=== PATIENT | female | born 1995 | race African-American/Black ===

== ENCOUNTER 2017-10-11 10:55 | Inpatient (IN) | payer SELFPAY ==
--- NOTE | 2017-10-11 11:07 | ER Document Report ---
ED Medical Screen (RME) - General Chief Complaint: Abdominal Pain Stated Complaint: STOMACH PAIN Time Seen by Provider: 10/11/17 11:03 Notes: This 22-year-old female patient comes emergency room with a 4 day history of suprapubic pressure discomfort. She developed frequency without dysuria. She states it does hurt when she walks. There is no nausea or vomiting. She reports that there may be a clear vaginal discharge but she does not know if that is new. Last menstrual period was in December of this year, she is quite irregular, does not know if he may or may not be . I have greeted and performed a rapid initial assessment of this patient. A comprehensive ED assessment and evaluation of the patient, analysis of test results and completion of the medical decision making process will be conducted by additional ED providers. TRAVEL OUTSIDE OF THE [place] IN LAST 30 DAYS: No - Related Data Allergies/Adverse Reactions: No Known Allergies Allergy (Verified 10/11/17 10:55) Past Medical History - Immunizations Hx Diphtheria, Pertussis, Tetanus Vaccination: Yes Physical Exam - Vital signs Vitals: Temp Pulse Resp BP Pulse Ox 98.3 F 93 20 156/93 H 99 10/11/17 11:01 10/11/17 11:01 10/11/17 11:01 10/11/17 11:01 10/11/17 11:01 Course - Vital Signs Vital signs: Temp Pulse Resp BP Pulse Ox 98.3 F 93 20 156/93 H 99 10/11/17 11:01 10/11/17 11:01 10/11/17 11:01 10/11/17 11:01 10/11/17 11:01
[2017-10-11 11:45] LABS: APPEARANCE,URINE CLOUDY; BILIRUBIN,URINE SMALL (NEGATIVE); CALCIUM OXALATE CRYSTALS,URINE RARE /HPF; GLUCOSE, URINE NEGATIVE (NEGATIVE); KETONES,URINE NEGATIVE (NEGATIVE); LEUKOCYTE ESTERASE,URINE NEGATIVE (NEGATIVE); NITRITE,URINE NEGATIVE (NEGATIVE); PROTEIN,URINE >=500 mg/dL (NEGATIVE); URINE SPECIFIC GRAVITY 1.034
--- NOTE | 2017-10-11 11:55 | ER Document Report ---
ED GI/ - General Chief Complaint: Abdominal Pain Stated Complaint: STOMACH PAIN Time Seen by Provider: 10/11/17 11:03 Mode of Arrival: Ambulatory Information source: Patient Notes: Patient is a 22-year-old female who presents to the ER today for lower abdominal pressure 4 days that worsened over the night and this morning. Patient admits to back pain that started this morning to the bilateral lower back. Patient states that she has had frequency of urination but no dysuria. She denies any fevers or chills. She denies but she states her last menstrual cycle was in December, but states that she is irregular and has been "stressed out." She states that the pain is coming and going. She states that it comes every couple of minutes now. She denies any vaginal bleeding but states that she had some clear vaginal discharge this morning. TRAVEL OUTSIDE OF THE [place] IN LAST 30 DAYS: No - Related Data Allergies/Adverse Reactions: No Known Allergies Allergy (Verified 10/11/17 10:55) Home Medications: Current Home Medications No Home Medications 10/11/17 [History] Past Medical History - General Information source: Patient - Social History Smoking Status: Never Smoker Frequency of alcohol use: Occasional Drug Abuse: None Family History: Reviewed & Not Pertinent Patient has suicidal ideation: No Patient has homicidal ideation: No Renal/ Medical History: Denies: Hx Peritoneal Dialysis Past Surgical History: Reports: Hx Tonsillectomy - Immunizations Hx Diphtheria, Pertussis, Tetanus Vaccination: Yes Review of Systems - Review of Systems Constitutional: No symptoms reported EENT: No symptoms reported Cardiovascular: No symptoms reported Respiratory: No symptoms reported Gastrointestinal: No symptoms reported Genitourinary: No symptoms reported Female Genitourinary: See HPI Musculoskeletal: No symptoms reported Skin: No symptoms reported Hematologic/Lymphatic: No symptoms reported Neurological/Psychological: No symptoms reported Physical Exam - Vital signs Vitals: Temp Pulse Resp BP Pulse Ox 98.3 F 93 20 156/93 H 99 10/11/17 11:01 10/11/17 11:01 10/11/17 11:01 10/11/17 11:01 10/11/17 11:01 - Notes Notes: PHYSICAL EXAMINATION: GENERAL: Obviously uncomfortable, holding lower abdomen and low back pacing around the room, but in no acute distress. HEAD: Atraumatic, normocephalic. EYES: Pupils equal round and reactive to light, extraocular movements intact, sclera anicteric, conjunctiva are normal. NECK: Normal range of motion, supple without lymphadenopathy LUNGS: CTAB and equal. No wheezes rales or rhonchi. HEART: Regular rate and rhythm without murmurs ABDOMEN: Full-term gravid abdomen, tender to palpation suprapubic, no guarding, no rebound BACK: no vertebral tenderness, normal ROM GI/: no CVA tenderness EXTREMITIES: Normal range of motion, no pitting edema. No cyanosis. NEUROLOGICAL: Cranial nerves grossly intact. Normal sensory/motor exams. PSYCH: Normal mood, normal affect. SKIN: Warm, Dry, normal turgor, no rashes or lesions noted Course - Re-evaluation Re-evalutation: 10/11/17 12:52 On abdominal exam patient is obviously . Bedside ultrasound was performed by myself and the my attending, Dr. Bright, who confirmed full-term sized fetus in the uterus. test positive on urine today. Dr. Escudero, SALES AGENT [employer] on-call was down to evaluate her within 5 minutes and did confirm that patient had broken her water this morning and was in labor. Patient is [address] Escudero's exam. Patient taken up to labor and delivery. 10/11/17 16:41 10/11/17 16:41 - Vital Signs Vital signs: Temp Pulse Resp BP Pulse Ox 98.3 F 93 20 156/93 H 99 10/11/17 11:01 10/11/17 11:01 10/11/17 11:01 10/11/17 11:01 10/11/17 11:01 - Laboratory Result Diagrams: 10/11/17 12:52 10/11/17 12:52 Laboratory results interpreted by me: 10/11/17 11:10 Urine Protein >=500 H Urine Blood SMALL H Urine Bilirubin SMALL H Urine Urobilinogen 4.0 H Urine HCG, Qual POSITIVE H Critical Care Note - Critical Care Note Total time excluding time spent on procedures (mins): 35 - 35 minutes spent in critical care time with patient, consulted with attending, speaking with family , placing orders and evaluating tests and labs. Discharge - Discharge Clinical Impression: full term Condition: Stable Disposition: ADMITTED INPATIENT Admitting Provider: [facility] Admitted: Labor and Delivery
[2017-10-11] MEDS ORDERED: RINGERS SOLUTION,LACTATED 1,000 ML IV PRN (12:33)
[2017-10-11] MEDS ORDERED: PENICILLIN G-K 5 MILLION UNIT VIAL ONE ×3 (12:57→21:14)
[2017-10-11] MEDS ORDERED: PENICILLIN G POTASSIUM 5,000,000 UNIT in DEXTROSE 5%-WATER 100 ML IV ONE (13:00)
[2017-10-11 13:32] LABS: ABSOLUTE BASOPHILS # (AUTO) 0.1 10^3/uL (0.0-0.2); ABSOLUTE NEUT (AUTO) 10.8 10^3/uL (1.7-8.2); BASOPHILS % (AUTO) 0.4 % (0-2); EOSINOPHILS % (AUTO) 0.2 % (0-6); HEMOGLOBIN 8.4 g/dL (12.0-15.5); HGB HCT DIFFERENCE -1.8; LYMPHOCYTES % (AUTO) 14.1 % (13-45); MEAN CORPUSCULAR HEMOGLOBIN 20.4 pg (27.0-33.4); MEAN CORPUSCULAR HGB CONC 30.9 g/dL (32.0-36.0); MEAN CORPUSCULAR VOLUME 66 fl (80-97); MONOCYTES % (AUTO) 7.5 % (3-13); RED CELL DISTRIBUTION WIDTH 18.1 % (11.5-14.0); SEGMENTED NEUTROPHILS % (AUTO) 77.8 % (42-78); WHITE BLOOD COUNT 13.9 10^3/uL (4.0-10.5)
[2017-10-11 13:48] LABS: APPEARANCE,URINE SLIGHTLY-CLOUDY; BILIRUBIN,URINE SMALL (NEGATIVE); GLUCOSE, URINE NEGATIVE (NEGATIVE); KETONES,URINE NEGATIVE (NEGATIVE); LEUKOCYTE ESTERASE,URINE NEGATIVE (NEGATIVE); NITRITE,URINE NEGATIVE (NEGATIVE); PROTEIN,URINE >=500 mg/dL (NEGATIVE); URINE SPECIFIC GRAVITY 1.035
[2017-10-11 13:52] LABS: ALANINE AMINOTRANSFERASE 27 U/L (9-52); ALBUMIN 3.3 g/dL (3.5-5.0); ALKALINE PHOSPHATASE 246 U/L (38-126); ANION GAP 12 (5-19); ASPARTATE AMINO TRANSFERASE 15 U/L (14-36); BILIRUBIN,DIRECT 0.2 mg/dL (0.0-0.4); BILIRUBIN,TOTAL 0.5 mg/dL (0.2-1.3); BLOOD UREA NITROGEN 5 mg/dL (7-20); CALCIUM 9.1 mg/dL (8.4-10.2); CARBON DIOXIDE 19 mmol/L (22-30); CHLORIDE 106 mmol/L (98-107); CREATININE RESULT 0.63 mg/dL (0.52-1.25); GLUCOSE 73 mg/dL (75-110); LDH 567 U/L (313-618); POTASSIUM 4.4 mmol/L (3.6-5.0); SODIUM 137.2 mmol/L (137-145); TOTAL PROTEIN 6.2 g/dL (6.3-8.2); URIC ACID 3.2 mg/dL (2.5-6.2)
[2017-10-11 13:57] LABS: URINE BARBITURATES SCREEN NEGATIVE; URINE METHADONE SCREEN NEGATIVE; URINE OPIATES LOW NEGATIVE; URINE PHENCYCLIDINE SCREEN NEGATIVE
--- NOTE | 2017-10-11 14:05 | RADIOLOGY REPORT (SQ) ---
EXAM DESCRIPTION: U/S OB LIMITED COMPLETED DATE/TIME: 10/11/2017 1:33 pm REASON FOR STUDY: No PNC, dates, EFW, presentation, Placenta, BELINDA COMPARISON: None. TECHNIQUE: Limited transabdominal grayscale ultrasound for evaluation of specific requested obstetri morenita parameters. LIMITATIONS: Maternal body habitus FINDINGS: CERVICAL LENGTH: Not visualized transabdominally. BELINDA: 2.3 cm, oligohydramnios qualitatively FHR: 140 beats per minute. PRESENTATION: Cephalic. OTHER: Multiple measurements generated estimated age of 38 weeks 4 days, weight 3755 g. placent a anterior, grade 2 IMPRESSION: Oligohydramnios, total BELINDA 2.3 cm heart rate 140 beats per minute Estimated age by multiple measurements is 38 weeks 4 days Trimester of : Third trimester - 28 weeks to delivery. TECHNICAL DOCUMENTATION: JOB ID: [id number] [employer]- All Rights Reserved
[2017-10-11] MEDS ORDERED: EPHEDRINE SULFATE INJ 50 MG/1 ML AMPULE ONE (14:16)
[2017-10-11] MEDS ORDERED: FENTANYL/BUPIVACAINE/NS/PF 200 MCG/100 ML RTUINJ EPI ONE (14:17)
[2017-10-11] MEDS ORDERED: BUPIVACAINE HCL 0.25 % INJ/PF (2.5 MG/1 ML) 30 ML VIAL ONE (14:17)
[2017-10-11 14:32] LABS: ADD HIVPANEL? NO; HIV (1 AND 2) ANTIBODY NEGATIVE (NEGATIVE)
[2017-10-11] MEDS ORDERED: PENICILLIN G POTASSIUM 2,500,000 UNIT in DEXTROSE 5%-WATER 50 ML IV SCH (17:00)
[2017-10-11] MEDS ORDERED: OXYTOCIN/NORMAL SALINE 20 UNIT/1,000 ML RTUINJ ONE ×2 (17:46→20:56)
[2017-10-11] MEDS ORDERED: LIDOCAINE 2% INJ-PF (20 MG/ML) 10 ML AMPUL ONE (19:48)
[2017-10-11] MEDS ORDERED: LIDOCAINE 1% INJ-PF (10 MG/ML) 30 ML SDV ONE (20:56)
[2017-10-11] MEDS ORDERED: MISOPROSTOL 0.2 MG TABLET ONE (20:56)
[2017-10-12] MEDS ORDERED: CEFAZOLIN 2 GM/D5W RTU 2 GM/50 ML RTUPB IV ONE (00:12)
[2017-10-12] MEDS ORDERED: CITRIC ACID/SODIUM CITRATE ORAL SOLN 15 ML UDCUP ONE (00:12)
[2017-10-12] MEDS ORDERED: CEFAZOLIN SODIUM 2 GM in DEXTROSE 5%-WATER 50 ML IV PRN (00:14)
[2017-10-12] MEDS ORDERED: KETOROLAC TROMETHAMINE INJ/PF 30 MG/1 ML SDV ONE (00:24)
[2017-10-12] MEDS ORDERED: EPHEDRINE SULFATE INJ 50 MG/1 ML AMPULE ONE (00:24)
[2017-10-12] MEDS ORDERED: FENTANYL CITRATE INJ/PF 100 MCG/2 ML AMPUL ONE (00:24)
[2017-10-12] MEDS ORDERED: OXYTOCIN 10 UNIT/ML VIAL ONE (00:24)
[2017-10-12] MEDS ORDERED: OXYTOCIN/NORMAL SALINE 0 UNIT/0 ML RTUINJ ONE (00:25)
[2017-10-12] MEDS ORDERED: ONDANSETRON HCL INJ/PF 4 MG/2 ML SDV ONE (00:25)
[2017-10-12] MEDS ORDERED: MIDAZOLAM 2 MG/2 ML INJ ONE (00:25)
[2017-10-12] MEDS ORDERED: ACETAMINOPHEN 100 ML IV ONE (00:25)
[2017-10-12] MEDS ORDERED: ACETAMINOPHEN 325 MG TABLET PO PRN (01:35)
[2017-10-12] MEDS ORDERED: OXYCODONE-ACETAMINOPHEN 5-325 MG TABLET PO PRN ×2 (01:35)
[2017-10-12] MEDS ORDERED: ACETAMINOPHEN 100 ML IV PRN (01:35)
[2017-10-12] MEDS ORDERED: SIMETHICONE 80 MG TAB.CHEW PO PRN (01:35)
[2017-10-12] MEDS ORDERED: MORPHINE SULFATE 10 MG/ML INJ IV PRN (01:35)
[2017-10-12] MEDS ORDERED: PROMETHAZINE HCL INJ 25 MG/1 ML VIAL IV PRN (01:35)
[2017-10-12] MEDS ORDERED: MEASLES,MUMPS&RUBELLA VACC/PF 0.5 ML VIAL SUBCUT PRN ×2 (01:35→11:30)
[2017-10-12] MEDS ORDERED: DIPH/PERTUSS(ACELL)/TETANUS VAC/PF 0.5 ML SYR (>=10YO) IM PRN ×2 (01:35→11:30)
[2017-10-12] MEDS ORDERED: OXYTOCIN/NORMAL SALINE 20 UNIT/1,000 ML RTUINJ IV PRN (01:35)
--- NOTE | 2017-10-12 02:58 | Delivery Summary ---
Del Sum A-C Datetime Report Generated by CPN: 10/12/2017 02:58 DELIVERY PERSONNEL DELIVERY PERSONNEL: [id number] Delivery Doctor:: Tiki Escudero MD Anesthesiologist:: Evin Mann MD BAKE ROOM WORKER:: Bassam Becker CRNA Labor and Delivery Nurse:: Daphne Romero RNcompensation and benefits advisor Nurse:: Mayi Neri RN Neonatal Nurse Practitioner:: NASREEN Ervin Nursery Nurse:: Kristen Ledesma RN Medical Administrator/RURAL CARRIER ASSOCIATE: Danielle Franklin Medical Administrator/RURAL CARRIER ASSOCIATE: Lea Semar, WAREHOUSE PACKER MATERNAL INFORMATION Delivery Anesthesia: Epidural Medications After Delivery: Pitocin Bolus-Please Comment; Pitocin Drip 20 Units/1000ml NSS Meds After Delivery Comment: NS with Pitocin 20 units liter Estimated Blood Loss (ml): 500 Maternal Complications: Premature Rupture of Membranes; Other Other Maternal Complications: no care LABOR SUMMARY EDC: 10/21/2017 00:00 No. Babies in Womb: 1 Attempted: No Labor Anesthesia: Epidural LABOR INFORMATION Reason for Induction: Not Applicable Onset of Labor: 10/11/2017 13:47 Complete Dilatation: 10/11/2017 22:34 Oxytocin: Induction Group B Beta Strep: unknown Swab sent Antibiotics # of Doses: 3 Antibiotics Time of Last Dose: 2127 Name of Antibiotic Given: Penicillin Steroids Given: None Reason Steroids Not Administered: Not Applicable MEMBRANES Membranes Rupture Method: Spontaneous Rupture of Membranes: 10/09/2017 20:00 Length of Rupture (hr): 52.58 Amniotic Fluid Color: Clear Amniotic Fluid Amount: Scant Amniotic Fluid Odor: None STAGES OF LABOR Stage 1 hr: 8 Stage 1 min: 47 Stage 2 hr: 2 Stage 2 min: 1 Stage 3 hr: 0 Stage 3 min: 1 Total Time in Labor hr: 10 Total Time in Labor min: 49 VAGINAL DELIVERY Episiotomy: None Laceration #1: None Laceration Extension #1: N/A Laceration Repair: Not Applicable Sponge Count Correct: Yes Sharps Count Correct: Yes CSECTION DELIVERY Primary Indication: Nonreassuring Status Secondary Indication: Arrest of Descent CSection Urgency: Non-Scheduled CSection Incidence: Primary Labor: Labor Elective: Nonelective CSection Incision: Lower Uterine Transverse BABY A INFORMATION Infant Delivery Date/Time: 10/12/2017 00:35 Method of Delivery: Born in Route : No : N/A Forceps: N/A Vacuum Extraction: Failed Shoulder Dystocia : No ASSISTED DELIVERY BABY A Catheter Prior to Procedure: Yes Vacuum Number of Pulls: 3 Vacuum Number of PopOffs: 3 Reduce Pressure btwn Ctx: Yes PRESENTATION/POSITION BABY A Presentation: Cephalic Cephalic Presentation: Vertex Breech Presentation: N/A PLACENTA INFORMATION BABY A Placenta Delivery Time : 10/12/2017 00:36 Placenta Method of Delivery: Manual Removal Placenta Status: Delivered SCORES BABY A Heart Rate 1 min: >100 bpm Resp Effort 1 min: Good Cry Reflex Irritability 1 min: Cough or Sneeze or Pulls Away Muscle Tone 1 min: Active Motion Color 1 min: Body Rufus, Extremities Blue Resuscitation Effort 1 min: N/A SCORE 1 MIN: 9 Heart Rate 5 min: >100 bpm Resp Effort 5 min: Good Cry Reflex Irritability 5 min: Cough or Sneeze or Pulls Away Muscle Tone 5 min: Active Motion Color 5 min: Body Rufus, Extremities Blue Resuscitation Effort 5 min: N/A SCORE 5 MIN: 9 INFORMATION BABY A Gestational Age at Delivery: 38.5 Gestational Status: Early Term- 37- 38.6 Weeks Outcome : Liveborn Condition : Stable Infant Sex: Female IDENTIFICATION BABY A Verification Date/Time: 10/12/2017 01:19 ID Band Number: [id number] Mother's Name Verified: Yes Infant RN Verifying Infant: B.Ring _ C.Scottie WEIGHT/LENGTH BABY A Infant Birthweight (gm): 3545 Weight (lb): 7 Weight (oz): 13 Length (in): 21.00 (Annotations: Data stored by [facility] on behalf of user) Length (cm): 53.34 CORD INFORMATION BABY A No. Cord Vessels: 3 Nuchal Cord : N/A Cord Blood Taken: Yes-For Storage (Mom's Blood type +) Suction: Mouth; Nose ASSESSMENT BABY A Infant Complications: Multiple Late Decels; Multiple Variable Decels; Other Complications- Other: prolonged decelerations Physical Findings at Delivery: Caput Succedaneum Infant Respirations: Appears Normal Skin to Skin: No Drum Handler/ALS Called : No Infant Care By: Rubin Ledesma RN Transferred To: [facility] BABY B INFORMATION : N/A
[2017-10-12] MEDS ORDERED: MORPHINE SULFATE 10 MG/ML INJ ONE (03:07)
--- NOTE | 2017-10-12 03:38 | OPERATIVE REPORT E ---
Operative Report NAME: KOTA COTTON : 1995 AGE: 22Y DATE OF SURGERY: 10/12/2017 ROOM: LR200 PREOPERATIVE DIAGNOSES: 1. Intrauterine at 38 weeks 5 days. 2. Nonreassuring heart tones. 3. Failure to descend. POSTOPERATIVE DIAGNOSES: 1. Intrauterine at 38 weeks 5 days. 2. Nonreassuring heart tones. 3. Failure to descend. OPERATION: Low-transverse hysterotomy section procedure. SURGEON: JORGE MCCONNELL MD ANESTHESIA: Evin Mann MD with epidural. FINDINGS: Female at presentation with to 8 and 9. ESTIMATED BLOOD LOSS: 800 mL. COMPLICATIONS: None. PROCEDURE: The patient was taken to the operating room, prepared and draped in the normal sterile fashion in the supine position with a leftward tilt. A transverse incision was made with the scalpel and carried through to the underlying layer of fascia with the same scalpel. The fascia was excised and extended laterally with Royal. Rectus muscle was divided and the peritoneal cavity was entered bluntly with good visualization of the bladder and the uterus. The bladder blade was inserted and the hysterotomy was nixed with a scalpel and extended laterally with surgeon finger fracture. The infant was then delivered atraumatically. The nose and mouth were suctioned with a suction bulb and the cord was clamped and cut. The was handed off to the waiting mechanical spreader operator. Cord blood was collected. Placenta was removed manually. The uterus was exteriorized and cleared of clots and the hysterotomy was closed with #0 Vicryl in a running locked fashion. Second layer of the same suture was used to imbricate to ensure hemostasis. The uterus was returned to the abdomen and peritoneal cavity was cleared of clots. The rectus muscle and peritoneum were reapproximated with a mattress stitch of 2-0 Chromic. The fascia was closed with #0 Vicryl. The subcutaneous layer was closed with plain cat gut and the skin was closed with 4-0 Vicryl. The patient tolerated the procedure well. Sponge, lap and needle counts were correct x2. The patient taken to recovery in stable condition. DICTATING PHYSICIAN: JORGE MCCONNELL M.D. [id number] PHY#: [id number] ID: [id number] JOB#: [id number] ACCT: [id number] cc:JORGE MCCONNELL M.D. >
--- NOTE | 2017-10-12 04:28 | Admission Physical ---
Datetime Report Generated by CPN: 10/12/2017 04:28 CURRENT ADMISSION Chief Complaint: Uterine Contractions; Maternal Discomfort Chief Complaint Other: indicates she was not aware of and that LMP was approximately 9 months ago. Thoughts that she had not had a MC due to "stress". EGA on sono today of 38 w Indication for Induction: Not Applicable Indication for Induction: Term, Intrauterine ; Ruptured Membranes Admit Impression- Other: sono at in ER revealed a term appearing in cephalic presentation with no evidence of previa. Good movement. Admit Plan: Admit to Unit; Initiate Labor Protocol; Initiate Labor Augmentation Protocol ALLERGIES Medication Allergies: No Medication Allergies: No Known Allergies (10/11/2017) Latex: No Latex Allergies Food Allergies: no Environmental Allergies: no OBSTETRICAL HISTORY EDC: 10/21/2017 00:00 : 1 Para: 0 Term: 0 : 0 SAB: 0 IAB: 0 Ectopic: 0 Livin Cesareans: 0 VBACs: 0 Multiple Births: 0 Gestational Diabetes: No Rh Sensitization: No Incompetent Cervix: No CHAYITO: No Infertility: No ART Treatment: No Uterine Anomaly: No IUGR: No Hx Previous C/S: No Macrosomia: No Hx Loss/Stillborn: No PIH: No Hx : No Placenta Previa/Abruption: No Depression/PP Depression: No PTL/PROM: No Post Hemorrhage: No Current Procedures: None SEE RECORDS Alcohol: Yes Alcohol Frequency: Occasional Alcohol Comments: last night Marijuana : No Cocaine: No Other Illicit Drugs: No Cigarettes: Never Smoker. 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 Surgery: No Heart Disease: No Hosp/Surgery: Yes Autoimmune Disorder: No Anesthetic Complications: No Kidney Disease: Yes Abnormal Pap Smear: No Neuro/Epilepsy: Yes Psychiatric Disorders: No Other Medical Diseases: No Hepatitis/Liver Disease: No Significant Family History: No Varicosities/Phlebitis: No Trauma/Violence : No Thyroid Dysfunction: No Medical History Comments: runs in the family -high b/p//3 months ago //migraines// asthma in the past// tonsils out INFECTIOUS HISTORY Gonorrhea: No Genital Herpes: No Chlamydia: No Tuberculosis: No Syphilis: No Hepatitis: No HIV/AIDS Exposure: No Rash or Viral Illness: No HPV: No PHYSICAL EXAM General: Normal HEENT: Normal Neurologic: Normal Thyroid: Normal Heart: Normal Lungs: Normal Breast: Normal Back: Normal Abdomen: Normal Genitourinary Exam: Normal Extremities: Normal DTRs: Normal Pelvic Type: Adequate Vital Signs: Reviewed VAGINAL EXAM Dilatation: 3 Effacement: 75 Station: -1 MEMBRANES Pooling: Negative Membranes: Ruptured FETUS A EGA: 38.4 Monitoring: External US FHR- Baseline: 140 Variability: Moderate 6-25bpm Accelerations: 15X15 Decelerations: None FHR Category: Category I Estimated Weight (gm): 3600 Presentation: Vertex PLANS FOR LABOR AND DELIVERY Labor and Delivery: None Pain Management: Epidural Feeding Preference: Formula Benefit of Breast Feed Discussed: Yes Circumcision: No INFORMED CONSENT Signature: with User ID: [email or web address]
[2017-10-12] MEDS: KETOROLAC TROMETHAMINE INJ/PF 30 MG/1 ML SDV IV SCH ×3 (05:53→22:30)
[2017-10-12] MEDS ORDERED: IBUPROFEN 800 MG TABLET PO SCH (06:00)
[2017-10-12] MEDS ORDERED: INFLUENZA ADLT QUAD (36MOS+) 2017-18 VAC 0.5 ML SYR IM PRN (06:40)
[2017-10-12] MEDS: RINGERS SOLUTION,LACTATED 1,000 ML IV PRN ×2 (08:25→18:19)
[2017-10-12] MEDS: DOCUSATE SODIUM 100 MG CAPSULE PO SCH ×2 (09:15→17:16)
[2017-10-12] MEDS: PRENATAL VITAMIN W DHA CAPSULE PO SCH (09:45)
--- NOTE | 2017-10-12 09:49 | PDOC PROGRESS REPORT ---
Subjective-OB Subjective: Post Delivery Day: 22 year old. Denies any needs at this time Doing well, eating, no nausea, pain under control, burping, pro still in, bottle feeding, did not realize she was Physical Exam (OB) Vital Signs: Temp Pulse Resp BP Pulse Ox 97.4 F 71 17 151/94 H 99 10/12/17 07:45 10/12/17 07:45 10/12/17 07:45 10/12/17 07:45 10/12/17 07:45 Intake & Output 10/11/17 10/12/17 10/13/17 06:59 06:59 06:59 Intake Total 375 Balance 375 - PIH/Pre-Eclampsia DTR's: 1 + Clonus: Negative Headache: Absent Epigastric Pain: No Visual Changes: No - Dressing Removed: No - op site Incision: Dressing, Draining - Lochia Lochia Amount: Small 10-25 ml Lochia Color: Rubra/Red - Abdomen Description: Soft, Round Hernia Present: No Fundal Description: Firm, Midline Fundal Height: u/u - u/2 Objective-Diagnostic Laboratory: 10/11/17 12:52 10/11/17 12:52 10/11/17 10/11/17 10/11/17 12:25 12:52 12:52 WBC 13.9 H RBC 4.10 Hgb 8.4 L Hct 27.0 L MCV 66 L MCH 20.4 L MCHC 30.9 L RDW 18.1 H Plt Count 325 Seg Neutrophils % 77.8 Lymphocytes % 14.1 Monocytes % 7.5 Eosinophils % 0.2 Basophils % 0.4 Absolute Neutrophils 10.8 H Absolute Lymphocytes 2.0 Absolute Monocytes 1.0 Absolute Eosinophils 0.0 Absolute Basophils 0.1 Sodium Potassium Chloride Carbon Dioxide Anion Gap BUN Creatinine Est GFR ( Amer) Est GFR (Non-Af Amer) Glucose Uric Acid Calcium Total Bilirubin AST ALT Alkaline Phosphatase Total Protein Albumin Urine Color DARK YELLOW Urine Appearance SLIGHTLY-CLOUDY Urine pH 5.0 Ur Specific Vista 1.035 Urine Protein >=500 H Urine Glucose (UA) NEGATIVE Urine Ketones NEGATIVE Urine Blood NEGATIVE Urine Nitrite NEGATIVE Ur Leukocyte Esterase NEGATIVE Urine WBC (Auto) 6 Urine RBC (Auto) 4 Blood Type B POSITIVE Antibody Screen NEGATIVE 10/11/17 12:52 WBC RBC Hgb Hct MCV MCH MCHC RDW Plt Count Seg Neutrophils % Lymphocytes % Monocytes % Eosinophils % Basophils % Absolute Neutrophils Absolute Lymphocytes Absolute Monocytes Absolute Eosinophils Absolute Basophils Sodium 137.2 Potassium 4.4 Chloride 106 Carbon Dioxide 19 L Anion Gap 12 BUN 5 L Creatinine 0.63 Est GFR ( Amer) > 60 Est GFR (Non-Af Amer) > 60 Glucose 73 L Uric Acid 3.2 Calcium 9.1 Total Bilirubin 0.5 AST 15 ALT 27 Alkaline Phosphatase 246 H Total Protein 6.2 L Albumin 3.3 L Urine Color Urine Appearance Urine pH Ur Specific Vista Urine Protein Urine Glucose (UA) Urine Ketones Urine Blood Urine Nitrite Ur Leukocyte Esterase Urine WBC (Auto) Urine RBC (Auto) Blood Type Antibody Screen Assessment and Plan(PN) - Assessment and Plan (1) No care in current Is this a current diagnosis for this admission?: Yes (2) Delivery by emergency caesarean section Is this a current diagnosis for this admission?: Yes (3) Anemia Qualifiers: Anemia type: iron deficiency Is this a current diagnosis for this admission?: Yes - Time Spent with Patient Time with patient: Less than 15 minutes Medications reviewed and adjusted accordingly: Yes - Disposition Anticipated Discharge: Home Within: within 48 hours
[2017-10-12] MEDS ORDERED: RINGERS SOLUTION,LACTATED 500 ML IV ONE ×2 (11:45→15:00)
[2017-10-13] MEDS: IBUPROFEN 800 MG TABLET PO SCH ×4 (03:33→22:00)
[2017-10-13 05:40] LABS: HEPATITIS C VIRUS AB <0.1 s/co ratio (0.0-0.9)
[2017-10-13 06:54] LABS: HEMATOCRIT 18.9 % (36.0-47.0); HGB HCT DIFFERENCE -1.5; MEAN CORPUSCULAR HEMOGLOBIN 20.5 pg (27.0-33.4); MEAN CORPUSCULAR HGB CONC 30.8 g/dL (32.0-36.0); MEAN CORPUSCULAR VOLUME 67 fl (80-97); RED BLOOD COUNT 2.84 10^6/uL (3.72-5.28); WHITE BLOOD COUNT 19.1 10^3/uL (4.0-10.5)
[2017-10-13 07:08] LABS: HEMOGLOBIN 5.8 g/dL (12.0-15.5)
[2017-10-13] MEDS: DOCUSATE SODIUM 100 MG CAPSULE PO SCH ×2 (09:29→17:14)
[2017-10-13] MEDS: FERROUS SULFATE 325 MG TABLET PO SCH ×2 (09:29→17:14)
[2017-10-13] MEDS: ASCORBIC ACID 500 MG TABLET PO SCH ×2 (09:29→17:14)
[2017-10-13] MEDS: PRENATAL VITAMIN W DHA CAPSULE PO SCH (09:30)
[2017-10-13] MEDS ORDERED: NORMAL SALINE 250 ML IV PRN (09:57)
--- NOTE | 2017-10-13 12:26 | PDOC PROGRESS REPORT ---
Subjective-OB Subjective: Post Delivery Day:1 22 year old G1 now P1 s/p primary delivery ppd1. Ambulating and voiding without difficulty. Passing gas, denies visual disturbance, headache, right upper quadrant pain. Denies Dizziness or shortness of breath but does report extreme fatigue, denies hx of antihypertensive therapy in the past. Denies any needs at this time. Agreeable to blood transfusion. Physical Exam (OB) Vital Signs: Temp Pulse Resp BP Pulse Ox 97.5 F 79 16 139/96 H 100 10/13/17 08:52 10/13/17 08:52 10/13/17 08:52 10/13/17 08:52 10/13/17 08:52 Intake & Output 10/12/17 10/13/17 10/14/17 06:59 06:59 06:59 Intake Total 4190 Output Total 3200 Balance 990 - General General Appearance: Appears well In distress: None - PIH/Pre-Eclampsia DTR's: 1 + Clonus: Negative Headache: Absent Epigastric Pain: No Visual Changes: No - Dressing Removed: No Incision: Draining, Well Approximated Closure Type: Surgical Glue - Lochia Lochia Amount: Scant < 10 ml Lochia Color: Rubra/Red - Abdomen Description: Soft, Round Hernia Present: No Fundal Description: Firm, Midline Fundal Height: u/u - u/2 - Respiratory Respiratory Status: No respiratory distress - Extremities Upper extremity: Normal inspection Lower extremities: Normal inspection - Neurological Cognition: Normal Orientation: AAOx4 - Psychological Associated symptoms: Normal affect, Normal mood Objective-Diagnostic Laboratory: 10/13/17 06:38 10/11/17 12:52 10/13/17 06:38 WBC 19.1 H RBC 2.84 L Hgb 5.8 L D Hct 18.9 L MCV 67 L MCH 20.5 L MCHC 30.8 L RDW 18.0 H Plt Count 234 Assessment and Plan(PN) - Assessment and Plan (1) Acute blood loss anemia Is this a current diagnosis for this admission?: Yes Plan: inc dietary iron and feso4 as ordered this am. Discussed CBC from this AM with Dr. Escudero who agrees with blood transfusion at this time. (2) No care in current Qualifiers: Trimester: third trimester Qualified Code(s): O09.33 - Supervision of with insufficient care, third trimester Is this a current diagnosis for this admission?: Yes Plan: routine pp care, buyer planner. Pt. with no care at any point of . (3) Delivery by emergency caesarean section Is this a current diagnosis for this admission?: Yes (4) Anemia Qualifiers: Anemia type: iron deficiency Is this a current diagnosis for this admission?: Yes Plan: increase dietary iron and po feso4 - Time Spent with Patient Time with patient: 15-25 minutes Medications reviewed and adjusted accordingly: Yes - Disposition Anticipated Discharge: Home Within: within 24 hours
[2017-10-14] MEDS: IBUPROFEN 800 MG TABLET PO SCH ×3 (04:59→17:14)
[2017-10-14] MEDS: ASCORBIC ACID 500 MG TABLET PO SCH ×2 (09:26→17:15)
[2017-10-14] MEDS: DOCUSATE SODIUM 100 MG CAPSULE PO SCH ×2 (09:26→17:15)
[2017-10-14] MEDS: FERROUS SULFATE 325 MG TABLET PO SCH ×2 (09:27→17:15)
[2017-10-14] MEDS: PRENATAL VITAMIN W DHA CAPSULE PO SCH (09:27)
--- NOTE | 2017-10-14 09:50 | PDOC PROGRESS REPORT ---
Subjective-OB Subjective: Post Delivery Day: 22 year old. Denies any needs at this time pt s/p blood transfusion reports feeling better, yet still tired +3 pitting edema denies headache/ blurred vision abdomen soft and nontender incision dry and intact= noted old dried blood and marked on dressing bp elevated this morning will repeat and discharge this afternoon pt consents otherwise follow up in clinic in 1 week Physical Exam (OB) Vital Signs: Temp Pulse Resp BP Pulse Ox 98.2 F 91 18 152/98 H 100 10/14/17 08:07 10/14/17 08:07 10/14/17 08:07 10/14/17 08:07 10/14/17 08:07 Intake & Output 10/13/17 10/14/17 10/15/17 06:59 06:59 06:59 Intake Total 4190 2615 Output Total 3200 Balance 990 2615 - PIH/Pre-Eclampsia DTR's: 1 + Clonus: Negative Headache: Absent Epigastric Pain: No Visual Changes: No - Dressing Removed: No Incision: Dressing, Draining, Well Approximated Closure Type: Surgical Glue - Bilateral Tubal Ligation Dressing Removed: No Site: Dressing, Draining, Well Approximated - Lochia Lochia Amount: Scant < 10 ml Lochia Color: Rubra/Red - Abdomen Description: Soft, Round Hernia Present: No Fundal Description: Firm, Midline Fundal Height: u/u - u/2 Objective-Diagnostic Laboratory: 10/13/17 06:38 10/11/17 12:52 10/11/17 12:52 Blood Type B POSITIVE Antibody Screen NEGATIVE 10/11/17 13:15 Vaginal/Anorectal Group B Streptococcus Culture - Final NO GROUP B STREPTOCOCCUS RECOVERED Assessment and Plan(PN) - Time Spent with Patient Medications reviewed and adjusted accordingly: Yes - Disposition Anticipated Discharge: Home
[2017-10-14 16:28] VITALS: BP 148/90
--- NOTE | 2017-10-16 14:42 | PDOC DISCHARGE SUMMARY ---
Final Diagnosis Discharge Date: 10/14/17 - Final Diagnosis (1) Acute blood loss anemia Is this a current diagnosis for this admission?: Yes (2) Anemia Is this a current diagnosis for this admission?: Yes (3) Delivery by emergency caesarean section Is this a current diagnosis for this admission?: Yes (4) No care in current Is this a current diagnosis for this admission?: Yes Discharge Data - Discharge Medication Home Medications: No Home Medications 10/11/17 Intrapartum Procedure(s): : Low Cervical, Transverse - Diagnosis Test Laboratory: Temp Pulse Resp BP Pulse Ox 98.4 F 90 16 148/90 H 100 10/14/17 16:32 10/14/17 16:32 10/14/17 16:32 10/14/17 16:32 10/14/17 16:32 10/11/17 10/11/17 10/13/17 12:25 12:52 06:38 RBC 4.10 2.84 L Hgb 8.4 L 5.8 L D Hct 27.0 L 18.9 L Urine Opiates Screen NEGATIVE - Discharge information/Instructions Discharge Activity: Activity As Tolerated, Balance Activity w/Rest, No Driving, No Lifting Over 10 Pounds, No Lifting/Push/Pulling, Pelvic Rest, Slowly Increase Activity, No tub bath Discharge Diet: Regular Disposition: HOME, SELF-CARE Follow up with: [facility] in: 1
== END 2017-10-14 17:40 | disposition home or self-care (01) | DRG 765 ==
LOC: ER 10:55 → EH 12:06 → LR 12:31 → 2S 10-12 03:25
PROVIDERS: ADMIT Obstetrics & Gynecology; ATTEND Obstetrics & Gynecology
PROC: 10D00Z1 Extraction of Products of Conception, Low, Open Approach (ICD-10-PCS; principal; 2017-10-12)
PROC: 4A1HXCZ Monitoring of Products of Conception, Cardiac Rate, External Approach (ICD-10-PCS; 2017-10-12)
PROC: 3E0234Z Introduction of Serum, Toxoid and Vaccine into Muscle, Percutaneous Approach (ICD-10-PCS; 2017-10-12)
PROC: 30233N1 Transfusion of Nonautologous Red Blood Cells into Peripheral Vein, Percutaneous Approach (ICD-10-PCS; 2017-10-13)
DX: O76 Abnormality in fetal heart rate and rhythm complicating labor and delivery (principal); D62 Acute posthemorrhagic anemia; O99.354 Diseases of the nervous system complicating childbirth; O62.1 Secondary uterine inertia; O99.02 Anemia complicating childbirth; G43.109 Migraine with aura, not intractable, without status migrainosus; O99.513 Diseases of the respiratory system complicating pregnancy, third trimester; J45.909 Unspecified asthma, uncomplicated; Z23 Encounter for immunization; Z3A.38 38 weeks gestation of pregnancy; Z37.0 Single live birth
CPT/HCPCS: 1961; 36415; 36430; 59025; 76815; 80053; 80307; 81001; 81025; 83615; 84550; 85025; 85027; 86592; 86701; 86762; 86803; 86804; 86850; 86900; 86901; 86920; 87081; 87340; 90686; 90715; 94760; 94799; 99291; J0131; J0690; J1885; J2250; J2270; J2405; J2540; J2590; J3010; J3490; J7120; P9016

== ENCOUNTER 2017-10-19 13:16 | Inpatient (IN) | payer SELFPAY ==
[2017-10-19] MEDS ORDERED: SUCCINYLCHOLINE CHLORIDE INJ 200 MG/10 ML VIAL ONE (13:35)
[2017-10-19] MEDS ORDERED: NITROGLYCERIN 2% OINTMENT 1 GM PACKET TP ONE (13:51)
[2017-10-19] MEDS ORDERED: LABETALOL HCL INJ 20 MG/4 ML DISP.SYRIN IV ONE (13:51)
[2017-10-19] MEDS ORDERED: NITROGLYCERIN 0.4 MG/TAB 25 TAB/BOTTLE SL ONE (13:51)
[2017-10-19 13:53] LABS: HEMATOCRIT 37.8 % (36.0-47.0); HEMOGLOBIN 11.5 g/dL (12.0-15.5); MEAN CORPUSCULAR HEMOGLOBIN 22.1 pg (27.0-33.4); MEAN CORPUSCULAR HGB CONC 30.4 g/dL (32.0-36.0); PLATELET COUNT 754 10^3/uL (150-450); RED CELL DISTRIBUTION WIDTH 24.1 % (11.5-14.0)
[2017-10-19] MEDS ORDERED: LORAZEPAM INJ 2 MG/1 ML VIAL IV ONE (13:55)
[2017-10-19] MEDS ORDERED: ONDANSETRON HCL INJ/PF 4 MG/2 ML SDV ONE (14:01)
[2017-10-19] MEDS ORDERED: ONDANSETRON HCL INJ/PF 4 MG/2 ML SDV IV ONE ×2 (14:02)
[2017-10-19] MEDS ORDERED: MAGNESIUM SULFATE PF/INJ 40 MEQ/10 ML SDV IV ONE (14:08)
[2017-10-19 14:10] LABS: MEAN CORPUSCULAR VOLUME 73 fl (80-97)
[2017-10-19 14:11] LABS: ALANINE AMINOTRANSFERASE 21 U/L (9-52); ALBUMIN 3.8 g/dL (3.5-5.0); ALKALINE PHOSPHATASE 214 U/L (38-126); ANION GAP 14 (5-19); ASPARTATE AMINO TRANSFERASE 25 U/L (14-36); BILIRUBIN,DIRECT 0.2 mg/dL (0.0-0.4); BILIRUBIN,TOTAL 0.7 mg/dL (0.2-1.3); BLOOD UREA NITROGEN 11 mg/dL (7-20); CALCIUM 10.2 mg/dL (8.4-10.2); CARBON DIOXIDE 22 mmol/L (22-30); CHLORIDE 108 mmol/L (98-107); CREATINE KINASE 97 U/L (30-135); GLUCOSE 118 mg/dL (75-110); MAGNESIUM 1.9 mg/dL (1.6-2.3); POTASSIUM 4.5 mmol/L (3.6-5.0); SODIUM 144.2 mmol/L (137-145)
--- NOTE | 2017-10-19 14:12 | ER Document Report ---
ED Respiratory Problem - General Chief Complaint: Shortness Of Breath Stated Complaint: SHORTNESS OF BREATH Time Seen by Provider: 10/19/17 13:36 Mode of Arrival: Medic Information source: Patient, Emergency Med Personnel, [facility] Records TRAVEL OUTSIDE OF THE [place] IN LAST 30 DAYS: No - HPI Patient complains to provider of: Chest pain, Short of breath Onset: This morning Duration: Continuous Initiating Event: Other - DELIVERY 7 DAYS AGO, UNCOMPLICATED Quality of pain: Pressure Severity: Moderate Context: Recent surgery. denies: DVT, Hx asthma, Hx COPD, Malignancy, - 7 d POST-, Recent cardiac event Short of Breath: Severe Chest pain/discomfort: Center Cough: Productive - SLIGHTLY Sputum amount: Scant EMS treatments: Oxygen Associated symptoms: Chest pain/discomfort, Leg/calf/joint pain, Short of breath , Sweaty, Other - PEDAL EDEMA. denies: Fever - UNSURE Similar symptoms previously: No Recently seen / treated by doctor: Yes - DELIVERY 7 d AGO - Related Data Allergies/Adverse Reactions: No Known Allergies Allergy (Verified 10/19/17 13:50) Home Medications: Current Home Medications High Potency Iron 325 mg PO BID 10/19/17 [History] Hydrocodone/Acetaminophen [[place] 5-325 mg Tablet] 1 tab PO Q4H 10/19/17 [History ] Ibuprofen [Motrin 800 mg Tablet] 800 mg PO Q8H 10/19/17 [History] Past Medical History - General Information source: Patient, [facility] Records - Social History Smoking Status: Never Smoker Cigarette use (# per day): No Chew tobacco use (# tins/day): No Smoking Education Provided: No Frequency of alcohol use: Occasional Drug Abuse: None Lives with: Family Family History: Hypertension - Past Medical History Cardiac Medical History: Reports: None Pulmonary Medical History: Reports: Hx Asthma Neurological Medical History: Reports: None Endocrine Medical History: Reports: None Renal/ Medical History: Reports: None. Denies: Hx Peritoneal Dialysis Malignancy Medical History: Reports: None GI Medical History: Reports: None Musculoskeltal Medical History: Reports None Psychiatric Medical History: Reports: None Past Surgical History: Reports: Hx Tonsillectomy - Immunizations Hx Diphtheria, Pertussis, Tetanus Vaccination: Yes Review of Systems - Review of Systems -: Yes ROS unobtainable due to patient's medical condition - VERY SHORT OF BREATH, CAN ONLY SPEAK IN MONOSYLLABLES Constitutional: See HPI Cardiovascular: See HPI Respiratory: See HPI Female Genitourinary: See HPI Neurological/Psychological: Anxiety. denies: Seizure Physical Exam - Vital signs Vitals: Resp Pulse Ox 22 H 53 L 10/19/17 13:32 10/19/17 13:32 Interpretation: Hypertensive, Tachycardic, Hypoxic, Tachypneic. No: Febrile - General General appearance: Anxious In distress: Moderate - HEENT Head: Normocephalic Eyes: Normal Conjunctiva: Normal Ears: Normal Nasal: Normal Mouth/Lips: Normal Mucous membranes: Normal Neck: Normal, Supple - Respiratory Respiratory status: Respiratory distress, Labored, Tachypnea Breath sounds: Rales - BILATERAL, MORE RIGHT LOWER - Cardiovascular Rhythm: Regular, Tachycardia Heart sounds: Normal auscultation Murmur: No - Abdominal Inspection: Obese Distension: No distension - Extremities General upper extremity: Normal inspection General lower extremity: Edema - 3+, BILATERAL - Neurological Neuro grossly intact: Yes Cognition: Normal Orientation: AAOx4 - Psychological Associated symptoms: Anxious - Skin Skin Temperature: Warm Skin Moisture: Moist Skin Color: Normal Course - Vital Signs Vital signs: Temp Pulse Resp BP Pulse Ox 98.7 F 31 H 156/121 H 92 10/19/17 14:03 10/19/17 15:27 10/19/17 15:27 10/19/17 15:27 - Laboratory Result Diagrams: 10/19/17 13:36 10/19/17 13:36 Laboratory results interpreted by me: 10/19/17 10/19/17 10/19/17 13:36 13:36 13:36 WBC 38.0 H* Hgb 11.5 L MCV 73 L D MCH 22.1 L MCHC 30.4 L RDW 24.1 H Plt Count 754 H Seg Neuts % (Manual) 90 H Band Neutrophils % 1 L Lymphocytes % (Manual) 7 L Monocytes % (Manual) 2 L Abs Neuts (Manual) 34.6 H Chloride 108 H Glucose 118 H Alkaline Phosphatase 214 H NT-Pro-B Natriuret Pep 7850 H - Diagnostic Test Radiology reviewed: Image reviewed, Reports reviewed - EKG Interpretation by Me EKG shows normal: Sinus rhythm, [place], Intervals, QRS Complexes, ST-T Waves Rate: Tachycardia - Consults DR. HOUSE Time consulted: 14:00 Consulted provider: will see as inpatient DR. RANDOLPH Time consulted: 14:57 Reason for consultation: 10/19/17 16:04 AGREES TO EVALUATE & WORK WITH DR. HOUSE ON ADMISSION. Consulted provider: will come to ER Critical Care Note - Critical Care Note Total time excluding time spent on procedures (mins): 90 Comments: CRITICALLY ABNORMAL VITAL SIGNS & LAB RESULTS, AGGRESSIVE INTERVENTIONS AND MULTIPLE CONSULTATIONS REQUIRED. Discharge - Discharge Clinical Impression: Pulmonary edema, Hypertension, Hypoxemia Condition: Critical Disposition: ADMITTED INPATIENT Admitting Provider: Hospitalist Unit Admitted: ICU
[2017-10-19 14:15] LABS: ABSOLUTE LYMPHOCYTES# (MANUAL) 2.7 10^3/uL (0.5-4.7); ABSOLUTE MONOCYTES # (MANUAL) 0.8 10^3/uL (0.1-1.4); ABSOLUTE NEUTROPHILS# (MANUAL) 34.6 10^3/uL (1.7-8.2); BAND NEUTROPHILS % (MANUAL) 1 % (3-5); BASOPHILS % (MANUAL) 0 % (0-2); EOSINOPHILS % (MANUAL) 0 % (0-6); LYMPHOCYTES % (MANUAL) 7 % (13-45); MONOCYTES % (MANUAL) 2 % (3-13); SEGMENTED NEUTROPHILS % (MAN) 90 % (42-78); TOTAL CELLS COUNTED 100
--- NOTE | 2017-10-19 14:15 | RADIOLOGY REPORT (SQ) ---
EXAM DESCRIPTION: CHEST SINGLE VIEW COMPLETED DATE/TIME: 10/19/2017 1:59 pm REASON FOR STUDY: DYSPNEA, HYPOXEMIA COMPARISON: None. EXAM PARAMETERS: NUMBER OF VIEWS: One view. TECHNIQUE: Single frontal radiographic view of the chest acquired. RADIATION DOSE: NA LIMITATIONS: None. FINDINGS: LUNGS AND PLEURA: Diffuse parenchymal opacities throughout both lungs, right greater than left. MEDIASTINUM AND HILAR STRUCTURES: No masses. Contour normal. HEART AND VASCULAR STRUCTURES: Mild cardiomegaly. BONES: No acute findings. HARDWARE: None in the chest. OTHER: No other significant finding. IMPRESSION: MILD CARDIOMEGALY. DIFFUSE PARENCHYMAL OPACITIES THROUGHOUT BOTH LUNGS MAY BE DUE TO YMMETRIC PULMONARY EDEMA AND/OR PNEUMONIA. TECHNICAL DOCUMENTATION: JOB ID: [id number] [employer] by [employer]- All Rights Reserved
[2017-10-19 14:17] LABS: ANISOCYTOSIS 3+; HYPOCHROMASIA SLIGHT; OVALOCYTES 1+; PLATELET COMMENT INCREASED; POIKILOCYTOSIS 1+; POLYCHROMASIA 1+; TOXIC GRANULATION SLIGHT; TOXIC VACUOLATION PRESENT
[2017-10-19 14:23] LABS: CREATINE KINASE MB 1.73 ng/mL (<4.55)
[2017-10-19 14:41] LABS: TROPONIN I 0.097 ng/mL
[2017-10-19] MEDS ORDERED: CEFTRIAXONE 2 GM/D5W RTU 2 GM/50 ML RTUPB IV ONE (14:45)
--- NOTE | 2017-10-19 14:59 | RADIOLOGY REPORT (SQ) ---
EXAM DESCRIPTION: CTA CHEST COMPLETED DATE/TIME: 10/19/2017 2:42 pm REASON FOR STUDY: DYSPNEA, HYPOXEMIA, 1 WK POST- COMPARISON: None. TECHNIQUE: CT scan of the chest performed using helical scanning technique with dynamic intravenous contrast injection. Images reviewed with lung, soft tissue and bone windows. Reconstructed coronal and sagittal MPR images reviewed. Additional 3 dimensional post-processing performed to develop Maximal Intensity Projection images (LA P). All images stored on PACS. All CT scanners at this facility use dose modulation, iterative reconstruction, and/or weight based d osing when appropriate to reduce radiation dose to as low as reasonably achievable (ALARA). [facility]: Dose Right [facility]: CareDose [facility]: Dose Right [facility]: Teradose 4D [facility]: Newser CONTRAST TYPE AND DOSE: contrast/concentration: Isovue 370.00 mg/ml; Total Contrast Delivered: 61.0 ml; Total Saline Delivered: 80.1 ml Contrast bolus optimized for the pulmonary arteries. Not diagnostic for the aorta. RENAL FUNCTION: BUN 11 creatinine 0.68. RADIATION DOSE: CT Rad equipment meets quality standard of care and radiation dose reduction techniq ues were employed. CTDIvol: 28.0 - 39.7 mGy. DLP: 1020 mGy-cm. . LIMITATIONS: None. FINDINGS: LUNGS AND PLEURA: Diffuse bilateral infiltrates. Right pleural effusion. AORTA AND GREAT VESSELS: No aneurysm. Contrast bolus not optimized for the aorta. HEART: No pericardial effusion. No significant coronary artery calcifications. PULMONARY ARTERIES: No emboli visualized in the main pulmonary arteries or the segmental branches. HILAR AND MEDIASTINAL STRUCTURES: No identified masses or abnormal nodes. HARDWARE: None in the chest. UPPER ABDOMEN: No significant findings. Limited exam. THYROID AND OTHER SOFT TISSUES: No masses. No adenopathy. BONES: No acute or significant finding. 3D MIPS: Confirm above findings. OTHER: No other significant finding. IMPRESSION: 1. NORMAL CTA OF THE CHEST. NO PULMONARY EMBOLI. 2. DIFFUSE BILATERAL PULMONARY INFILTRATES WITH RIGHT PLEURAL EFFUSION. DIFFERENTIAL INCLUDES MULTIF OCAL PNEUMONIA AND/OR PULMONARY EDEMA. COMMENT: Quality ID # [id number]: Final reports with documentation of one or more dose reduction techniques (e.g., Automated exposure control, adjustment of the mA and/or kV according to patient size, use of iterative reconstruction technique) TECHNICAL DOCUMENTATION: JOB ID: [id number]- All Rights Reserved
[2017-10-19] MEDS ORDERED: FUROSEMIDE INJ/PF 40 MG/4 ML SDV IV ONE (15:27)
[2017-10-19] MEDS ORDERED: ALBUTEROL SULFATE 0.083% NEB 2.5 MG/3 ML AMPUL NEB PRN (15:42)
[2017-10-19] MEDS ORDERED: ACETAMINOPHEN 325 MG TABLET PO PRN (15:42)
[2017-10-19] MEDS ORDERED: OXYCODONE-ACETAMINOPHEN 5-325 MG TABLET PO PRN (15:42)
[2017-10-19] MEDS ORDERED: ONDANSETRON HCL INJ/PF 4 MG/2 ML SDV IV PRN (15:42)
[2017-10-19] MEDS ORDERED: HYDRALAZINE HCL INJ/PF 20 MG/1 ML SDV IV PRN ×2 (15:52→18:30)
--- NOTE | 2017-10-19 15:56 | EKG REPORT ---
SEVERITY:- OTHERWISE NORMAL ECG - SINUS TACHYCARDIA : Confirmed by: Adria Ashraf 19-Oct-2017 15:55:38
[2017-10-19] MEDS ORDERED: GENTAMICIN SULFATE 0 MG in DEXTROSE 5%-WATER 100 ML IV NR (16:00)
--- NOTE | 2017-10-19 16:09 | PDOC H&P ---
History of Present Illness Admission Date/PCP: October 19, 2017 Patient complains of: Shortness of breath History of Present Illness: KOTA COTTON is a 22 year old female who is about 1 week after C- section for a normal . The patient reports that she initially did well but for the last 4 days has been having worsening shortness of breath. She also has had a cough productive of some de la cruz colored sputum. She reports that her breathing has gotten progressively worse and she now has 3 pillow orthopnea as well as PND and lower extremity edema. She denies having any chest pain. Denies any palpitations or tachycardia. She was found to be hypoxic when she presented and is currently on BiPAP on 75% FiO2 and only satting 92%. The patient also has a respiratory rate of 40 at this time. The patient is noted to have bilateral inspiratory crackles consistent with pulmonary edema. Patient does however have a white count of 38,000. She denies having any fever. She has had some foul-smelling vaginal discharge. She reports that she has small amount of pain in the surgical area in the suprapubic region. She has no history of hypertension previous but her mother is only 43 and has severe hypertension by her report. Patient will be admitted to the ICU for presumed pulmonary edema from congestive heart failure most likely secondary to diastolic dysfunction given a blood pressure of 190/140 at one time during the emergency room. Past Medical History Cardiac Medical History: Reports: None, Hypertension Pulmonary Medical History: Reports: Asthma Neurological Medical History: Reports: None Endocrine Medical History: Reports: None Renal/ Medical History: Reports: None Malignancy Medical History: Reports: None GI Medical History: Reports: None Musculoskeltal Medical History: Reports: None Psychiatric Medical History: Reports: None Hematology: Reports: None Infectious Medical History: Reports: None Past Surgical History Past Surgical History: Reports: Section - x1, Tonsillectomy Social History Information Source: Patient Lives with: Family Smoking Status: Never Smoker Frequency of Alcohol Use: Rare Hx Recreational Drug Use: No Drugs: None Hx Prescription Drug Abuse: No - Advance Directive Resuscitation Status: Full Code Family History Family History: Hypertension Parental Family History Reviewed: Yes Children Family History Reviewed: No Sibling(s) Family History Reviewed.: No Medication/Allergy Home Medications: High Potency Iron 325 mg PO BID 10/19/17 Hydrocodone/Acetaminophen [[place] 5-325 mg Tablet] 1 tab PO Q4H 10/19/17 Ibuprofen [Motrin 800 mg Tablet] 800 mg PO Q8H 10/19/17 Allergies/Adverse Reactions: No Known Allergies Allergy (Verified 10/19/17 13:50) Review of Systems Constitutional: PRESENT: weight gain. ABSENT: chills, fever(s), headache(s) Eyes: ABSENT: visual disturbances Ears: ABSENT: hearing changes Cardiovascular: PRESENT: dyspnea on exertion, edema, orthropnea. ABSENT: chest pain, palpitations Respiratory: PRESENT: cough, dyspnea, sputum. ABSENT: hemoptysis Gastrointestinal: ABSENT: abdominal pain, constipation, diarrhea, hematemesis, hematochezia, nausea, vomiting Genitourinary: PRESENT: other - Foul-smelling vaginal discharge Integumentary: ABSENT: rash, wounds Neurological: ABSENT: abnormal gait, abnormal speech, confusion, dizziness, focal weakness, syncope Psychiatric: ABSENT: anxiety, depression Endocrine: ABSENT: cold intolerance, heat intolerance, polydipsia, polyuria Hematologic/Lymphatic: ABSENT: easy bleeding, easy bruising Physical Exam Vital Signs: Temp Pulse Resp BP Pulse Ox 98.7 F 31 H 156/121 H 92 10/19/17 14:03 10/19/17 15:27 10/19/17 15:27 10/19/17 15:27 Intake & Output 10/18/17 10/19/17 10/20/17 06:59 06:59 06:59 Weight 50.802 kg General appearance: PRESENT: severe distress Head exam: PRESENT: atraumatic, normocephalic Eye exam: PRESENT: conjunctiva pink, EOMI, PERRLA. ABSENT: scleral icterus Ear exam: PRESENT: normal external ear exam Neck exam: PRESENT: JVD. ABSENT: carotid bruit, lymphadenopathy, thyromegaly Respiratory exam: PRESENT: rales - Bibasilar Rales. ABSENT: rhonchi, wheezes Cardiovascular exam: PRESENT: RRR, tachycardia. ABSENT: diastolic murmur, rubs , systolic murmur Vascular exam: PRESENT: normal capillary refill GI/Abdominal exam: PRESENT: normal bowel sounds, soft, other - Dressing over the suprapubic surgical site from her . ABSENT: distended, guarding, mass, organolmegaly, rebound, tenderness Rectal exam: PRESENT: deferred Extremities exam: PRESENT: pedal edema, +2 edema. ABSENT: calf tenderness, clubbing Neurological exam: PRESENT: alert, awake, oriented to person, oriented to place , oriented to time, oriented to situation, CN II-XII grossly intact. ABSENT: motor sensory deficit Psychiatric exam: PRESENT: anxious Skin exam: PRESENT: dry, intact, warm. ABSENT: cyanosis, rash Results Laboratory Results: 10/19/17 13:36 10/19/17 13:36 10/19/17 10/19/17 13:36 13:36 WBC 38.0 H* RBC 5.20 Hgb 11.5 L Hct 37.8 MCV 73 L D MCH 22.1 L MCHC 30.4 L RDW 24.1 H Plt Count 754 H Seg Neutrophils % Not Reportable Lymphocytes % Not Reportable Monocytes % Not Reportable Eosinophils % Not Reportable Basophils % Not Reportable Absolute Neutrophils Not Reportable Absolute Lymphocytes Not Reportable Absolute Monocytes Not Reportable Absolute Eosinophils Not Reportable Absolute Basophils Not Reportable Sodium 144.2 Potassium 4.5 Chloride 108 H Carbon Dioxide 22 Anion Gap 14 BUN 11 Creatinine 0.68 Est GFR ( Amer) > 60 Est GFR (Non-Af Amer) > 60 Glucose 118 H Calcium 10.2 Magnesium 1.9 Total Bilirubin 0.7 AST 25 ALT 21 Alkaline Phosphatase 214 H Total Protein 7.0 Albumin 3.8 10/19/17 10/19/17 10/19/17 13:36 13:36 13:36 Creatine Kinase 97 CK-MB (CK-2) 1.73 Troponin I 0.097 NT-Pro-B Natriuret Pep 7850 H Impressions: Chest X-Ray 10/19/17 13:37 IMPRESSION: MILD CARDIOMEGALY. DIFFUSE PARENCHYMAL OPACITIES THROUGHOUT BOTH LUNGS MAY BE DUE TO ASYMMETRIC PULMONARY EDEMA AND/OR PNEUMONIA. Chest/Abdomen CTA 10/19/17 14:06 IMPRESSION: 1. NORMAL CTA OF THE CHEST. NO PULMONARY EMBOLI. 2. DIFFUSE BILATERAL PULMONARY INFILTRATES WITH RIGHT PLEURAL EFFUSION. DIFFERENTIAL INCLUDES MULTIFOCAL PNEUMONIA AND/OR PULMONARY EDEMA. Assessment & Plan - Diagnosis (1) Hypertensive emergency Is this a current diagnosis for this admission?: Yes Plan: Patient has dyspnea, hypoxia and what appears to be pulmonary edema. Will treat with BiPAP, IV Lasix, as needed hydralazine. The possibility of the pulmonary findings representing pneumonia is considered although I suspect that is mostly acute diastolic congestive heart failure given the elevated blood pressures. Her blood pressure 1 time during the emergency room visit was 190/ 140. The possibility this representing preeclampsia is considered. I discussed the case with Dr. Yang of [facility] [employer] who graciously agrees to evaluate the patient. Will defer to his decision whether or not this patient needs to be on magnesium. Will check serial cardiac enzymes. If she does not have rapid improvement would obtain an echocardiogram. (2) Endometriosis Is this a current diagnosis for this admission?: Yes Plan: The patient has a white count of 30,000. This most likely is not coming from a pulmonary source although she does have a cough she also has the pulmonary edema. Will treat for presumed endometriosis with ampicillin, gentamicin and clindamycin. Blood cultures have already been obtained. (3) Anemia Qualifiers: Anemia type: iron deficiency Is this a current diagnosis for this admission?: Yes Plan: Patient's hemoglobin is only slightly low. Will follow. - Time Time Spent: 50 to 70 Minutes - Inpatient Certification Medical Necessity: Need Close Monitoring Due to Risk of Patient Decompensation - Plan Summary Plan Summary: We will admit the patient to the ICU for close monitoring as she is requiring high flow oxygen as well as BiPAP. I am concerned that if she deteriorates any further at all she will require intubation and mechanical ventilation.
[2017-10-19 16:16] LABS: ARTERIAL BLOOD BASE EXCESS -2.7 mmol/L; ARTERIAL BLOOD H2CO3 1.12 mmol/L (1.05-1.35); ARTERIAL BLOOD HCO3 21.9 mmol/L (20-26); ARTERIAL BLOOD O2 SATURATION 92.1 % (94-98); ARTERIAL BLOOD PCO2 37.2 mmHg (35-45); ARTERIAL BLOOD PH 7.39 (7.35-7.45); ARTERIAL BLOOD PO2 63.3 mmHg (80-100)
[2017-10-19 16:19] LABS: ARTERIAL BLOOD FIO2 100%
[2017-10-19 16:26] LABS: APPEARANCE,URINE SLIGHTLY-CLOUDY; BILIRUBIN,URINE NEGATIVE (NEGATIVE); COLOR,URINE YELLOW; GLUCOSE, URINE NEGATIVE (NEGATIVE); KETONES,URINE NEGATIVE (NEGATIVE); LEUKOCYTE ESTERASE,URINE NEGATIVE (NEGATIVE); NITRITE,URINE NEGATIVE (NEGATIVE); PROTEIN,URINE >=500 mg/dL (NEGATIVE); URINE SPECIFIC GRAVITY 1.046; UROBILINOGEN,URINE NEGATIVE mg/dL (<2.0)
[2017-10-19] MEDS ORDERED: CLINDAMYCIN 600 MG/D5W RTU 600 MG/50 ML RTUPB IV SCH (16:30)
[2017-10-19] MEDS ORDERED: PROPOFOL 100 ML IV ONE ×2 (17:18→19:07)
[2017-10-19] MEDS ORDERED: ACETAMINOPHEN 650 MG SUPP.RECT PR PRN (17:44)
[2017-10-19] MEDS ORDERED: PROPOFOL INJ 200 MG/20 ML VIAL IV ONE (17:44)
[2017-10-19] MEDS ORDERED: INFLUENZA ADLT QUAD (36MOS+) 2017-18 VAC 0.5 ML SYR IM PRN (17:58)
[2017-10-19] MEDS ORDERED: GENTAMICIN SULFATE 140 MG in DEXTROSE 5%-WATER 100 ML IV SCH (18:00)
[2017-10-19] MEDS ORDERED: AMPICILLIN SODIUM/SULBACTAM NA 1.5 GM in NORMAL SALINE 50 ML IV SCH (18:00)
[2017-10-19] MEDS ORDERED: FUROSEMIDE INJ/PF 40 MG/4 ML SDV IV SCH (18:00)
[2017-10-19] MEDS ORDERED: LORAZEPAM INJ 2 MG/1 ML VIAL ONE (18:18)
[2017-10-19] MEDS ORDERED: LORAZEPAM 24 MG/ D5W 240 ML IV PRN (18:23)
--- NOTE | 2017-10-19 18:28 | RADIOLOGY REPORT (SQ) ---
EXAM DESCRIPTION: CHEST SINGLE VIEW COMPLETED DATE/TIME: 10/19/2017 6:05 pm REASON FOR STUDY: post intubation COMPARISON: 10/19/2017. EXAM PARAMETERS: NUMBER OF VIEWS: One view. TECHNIQUE: Single frontal radiographic view of the chest acquired. RADIATION DOSE: NA LIMITATIONS: None. FINDINGS: LUNGS AND PLEURA: Worsening diffuse parenchymal opacities and pleural effusions. MEDIASTINUM AND HILAR STRUCTURES: No masses. Contour normal. HEART AND VASCULAR STRUCTURES: Cardiomegaly. BONES: No acute findings. HARDWARE: Endotracheal tube with the tip located 4 cm proximal to the hu. OTHER: No other significant finding. IMPRESSION: INTERVAL PLACEMENT OF ENDOTRACHEAL TUBE WHICH APPEARS TO BE IN APPROPRIATE POSITION. WO RSENING PARENCHYMAL OPACITIES AND PLEURAL EFFUSIONS. TECHNICAL DOCUMENTATION: JOB ID: [id number] [employer]- All Rights Reserved
--- NOTE | 2017-10-19 18:49 | PDOC DISCHARGE SUMMARY ---
General - Admit/Disc Date/PCP Admission Date/Primary Care Provider: 10/19/17 16:05 Discharge Date: 10/19/17 - Discharge Diagnosis (1) Hypertensive emergency Is this a current diagnosis for this admission?: Yes Summary: Blood pressure was initially 190/140. She has required intubation and mechanical ventilation because of hypoxia. (2) Anemia Is this a current diagnosis for this admission?: Yes (3) Endometritis following delivery Is this a current diagnosis for this admission?: Yes Summary: Possible endometritis given fever and elevated white count. Started on gentamicin, Unasyn and clindamycin. - Additional Information Resuscitation Status: Full Code Home Medications: High Potency Iron 325 mg PO BID 10/19/17 Hydrocodone/Acetaminophen [[place] 5-325 mg Tablet] 1 tab PO Q4H 10/19/17 Ibuprofen [Motrin 800 mg Tablet] 800 mg PO Q8H 10/19/17 History of Present Illness History of Present Illness: KOTA COTTON is a 22 year old female who is about 1 week after C- section for a normal . The patient reports that she initially did well but for the last 4 days has been having worsening shortness of breath. She also has had a cough productive of some de la cruz colored sputum. She reports that her breathing has gotten progressively worse and she now has 3 pillow orthopnea as well as PND and lower extremity edema. She denies having any chest pain. Denies any palpitations or tachycardia. She was found to be hypoxic when she presented and is currently on BiPAP on 75% FiO2 and only satting 92%. The patient also has a respiratory rate of 40 at this time. The patient is noted to have bilateral inspiratory crackles consistent with pulmonary edema. Patient does however have a white count of 38,000. She denies having any fever. She has had some foul-smelling vaginal discharge. She reports that she has small amount of pain in the surgical area in the suprapubic region. She has no history of hypertension previous but her mother is only 43 and has severe hypertension by her report. Patient will be admitted to the ICU for presumed pulmonary edema from congestive heart failure most likely secondary to diastolic dysfunction given a blood pressure of 190/140 at one time during the emergency room. Hospital Course Hospital Course: 22-year-old female admitted with acute respiratory failure secondary to congestive heart failure. The patient presented with blood pressures of 190/ 140. She was initially started on BiPAP and continued to have significant hypoxia. She was given Lasix and transferred to the intensive care unit. We continue to have problems with oxygenation in spite of BiPAP and being on 100% FiO2. Because of this she was intubated and placed on a mechanical ventilator. Her blood gas prior to intubation showed her to have hypoxia but a normal pH. The patient is 1 week from a normal . She had a C- section on October 12. The patient did have elevated blood pressures on the day of discharge of 150/90 however she did not have any shortness of breath at that time. She continued to have significant lower extremity edema. She also had orthopnea and PND. The patient had an elevated BNP of 7850. Her blood pressure has decreased with IV Lasix and hydralazine as well as propofol for intubation. Because of her continued difficulties with oxygenation the decision was made to transfer the patient. I discussed the case with the brazer resistance at [facility], Dr. Cadet. He graciously agrees to accept the patient in transfer. The patient also presented with fever of 101 as well as a white count of 38,000. There was initially some concern this may represent pneumonia given the diffuse infiltrates however the pulmonary findings are more consistent with congestive heart failure. Given her recent the possibility of endometritis was considered and we start her empirically on Unasyn, gentamicin, clindamycin. Physical Exam Vital Signs: Temp Pulse Resp BP Pulse Ox 101 F H 123 H 18 132/98 H 91 L 10/19/17 16:47 10/19/17 16:47 10/19/17 17:55 10/19/17 17:55 10/19/17 17:55 Intake & Output 10/18/17 10/19/17 10/20/17 06:59 06:59 06:59 Output Total 250 Balance -250 Weight 113.9 kg General appearance: PRESENT: severe distress Eye exam: PRESENT: conjunctiva pink. ABSENT: scleral icterus Mouth exam: PRESENT: moist, tongue midline Neck exam: PRESENT: JVD Respiratory exam: PRESENT: rales. ABSENT: rhonchi, wheezes Cardiovascular exam: PRESENT: RRR, tachycardia. ABSENT: diastolic murmur, rubs , systolic murmur GI/Abdominal exam: PRESENT: normal bowel sounds, soft, tenderness - Mild suprapubic tenderness in the area of her surgical wound.. ABSENT: distended, guarding, mass, organolmegaly, rebound Rectal exam: PRESENT: deferred Extremities exam: PRESENT: pedal edema, +2 edema. ABSENT: calf tenderness, clubbing Neurological exam: PRESENT: other - Intubated and sedated Skin exam: PRESENT: dry, intact, warm. ABSENT: cyanosis, rash Results Laboratory Results: 10/19/17 16:15 Urine Color YELLOW Urine Appearance SLIGHTLY-CLOUDY Urine pH 5.0 Ur Specific [place] 1.046 Urine Protein >=500 H Urine Glucose (UA) NEGATIVE Urine Ketones NEGATIVE Urine Blood NEGATIVE Urine Nitrite NEGATIVE Ur Leukocyte Esterase NEGATIVE Urine WBC (Auto) 4 Urine RBC (Auto) 0 Impressions: Chest X-Ray 10/19/17 13:37 IMPRESSION: MILD CARDIOMEGALY. DIFFUSE PARENCHYMAL OPACITIES THROUGHOUT BOTH LUNGS MAY BE DUE TO ASYMMETRIC PULMONARY EDEMA AND/OR PNEUMONIA. Chest/Abdomen CTA 10/19/17 14:06 IMPRESSION: 1. NORMAL CTA OF THE CHEST. NO PULMONARY EMBOLI. 2. DIFFUSE BILATERAL PULMONARY INFILTRATES WITH RIGHT PLEURAL EFFUSION. DIFFERENTIAL INCLUDES MULTIFOCAL PNEUMONIA AND/OR PULMONARY EDEMA. Qualifiers PATEINT BEING DISCHARGED WITH ANY OF THE FOLLOWING DIAGNOSIS?: Heart Failure MO Pt discharged ACEI/ARBS?: No Reason(s) for not prescribing ACEI/ARBS:: Not indicated HF Pt discharged on evidence-based Beta Raiza:: No Reason(s) for not prescribing evidence-based Beta Raiza:: Not indicated Plan Discharge Plan: Patient is transferred to [facility]. Dr. Cadet is the accepting physician. Time Spent: Greater than 30 Minutes
--- NOTE | 2017-10-19 18:50 | PDOC CONSULTATION ---
Consultation Consult Date: 10/19/17 Attending physician:: SEMAJ RANDOLPH Consult reason:: acute resp failure History of Present Illness Admission Date/PCP: 10/19/17 16:05 History of Present Illness: KOTA COTTON is a 22 year old female who is about 1 week after C- section for a normal . The patient's mother reports that she has the last 4 days has been having worsening shortness of breath. She also has had a cough productive of some de la cruz colored sputum. She reports that her breathing has gotten progressively worse and she now has 3 pillow orthopnea as well as PND and lower extremity edema. She denies having any chest pain. Denies any palpitations or tachycardia. She was found to be hypoxic when she presented and currently on MECH VENT [id number]%;TV 550 ;RR 24set total 27 min vol 15.4 L; peak [id number];mean airway 23;SAO2 99%. The patient is noted to have bilateral inspiratory crackles consistent with pulmonary edema. Patient does however have a white count of 38,000. Her mother stated patient c/o being"hot"denies having any fever. She has had some foul-smelling vaginal discharge per pcp. She reported prior to intubation that she has small amount of pain in the surgical area in the suprapubic region. She has no history of hypertension previous but her mother is only 43 and has severe hypertension by her report. Past Medical History Cardiac Medical History: Reports: None, Hypertension Pulmonary Medical History: Reports: Asthma Neurological Medical History: Reports: None Endocrine Medical History: Reports: None Renal/ Medical History: Reports: None Malignancy Medical History: Reports: None GI Medical History: Reports: None Musculoskeltal Medical History: Reports: None Psychiatric Medical History: Reports: None Hematology: Reports: None Infectious Medical History: Reports: None Past Surgical History Past Surgical History: Reports: Section - x1, Tonsillectomy Social History Information Source: Parent, [facility] Records Lives with: Family Smoking Status: Never Smoker Frequency of Alcohol Use: Rare Hx Recreational Drug Use: No Drugs: None Hx Prescription Drug Abuse: No - Advance Directive Resuscitation Status: Full Code Family History Family History: Hypertension Parental Family History Reviewed: No Children Family History Reviewed: No Sibling(s) Family History Reviewed.: No Medication/Allergy Home Medications: High Potency Iron 325 mg PO BID 10/19/17 Hydrocodone/Acetaminophen [[place] 5-325 mg Tablet] 1 tab PO Q4H 10/19/17 Ibuprofen [Motrin 800 mg Tablet] 800 mg PO Q8H 10/19/17 Allergies/Adverse Reactions: No Known Allergies Allergy (Verified 10/19/17 13:50) Review of Systems ROS unobtainable: Due to endotracheal tube Physical Exam Vital Signs: Temp Pulse Resp BP Pulse Ox 101 F H 123 H 18 132/98 H 91 L 10/19/17 16:47 10/19/17 16:47 10/19/17 17:55 10/19/17 17:55 10/19/17 17:55 Intake & Output 10/18/17 10/19/17 10/20/17 06:59 06:59 06:59 Output Total 250 Balance -250 Weight 113.9 kg General appearance: PRESENT: disheveled, obese, severe distress, well- developed. ABSENT: no acute distress, cooperative, mild distress, morbidly obese, thin Head exam: PRESENT: atraumatic, normocephalic Eye exam: PRESENT: conjunctiva pale. ABSENT: conjunctival injection, conjunctiva pink, EOMI, nystagmus, periorbital swelling, scleral icterus Mouth exam: PRESENT: dry mucosa, neck supple, tongue midline, other - ET tube 7.5 23 lip. ABSENT: laceration, moist Neck exam: ABSENT: carotid bruit, JVD, lymphadenopathy, thyromegaly, tracheal deviation, tracheostomy Respiratory exam: PRESENT: crackles, decreased breath sounds, rhonchi, symmetrical, tachypnea, unlabored. ABSENT: accessory muscle use, chest wall tenderness, clear to auscultation doris, prolonged expiratory phas, rales, retraction, stridor Cardiovascular exam: PRESENT: RRR, +S1, +S2. ABSENT: irregular rhythm, rubs Pulses: PRESENT: normal radial pulses GI/Abdominal exam: PRESENT: normal bowel sounds, soft, other - s/p"C"section( recent). ABSENT: distended, guarding, mass, organolmegaly, rebound, tenderness Gentrourinary exam: PRESENT: indwelling catheter Extremities exam: PRESENT: +2 edema. ABSENT: calf tenderness, clubbing Neurological exam: ABSENT: alert, altered, awake Skin exam: PRESENT: dry, warm Results Laboratory Results: 10/19/17 16:15 Urine Color YELLOW Urine Appearance SLIGHTLY-CLOUDY Urine pH 5.0 Ur Specific [place] 1.046 Urine Protein >=500 H Urine Glucose (UA) NEGATIVE Urine Ketones NEGATIVE Urine Blood NEGATIVE Urine Nitrite NEGATIVE Ur Leukocyte Esterase NEGATIVE Urine WBC (Auto) 4 Urine RBC (Auto) 0 Impressions: Chest X-Ray 10/19/17 13:37 IMPRESSION: MILD CARDIOMEGALY. DIFFUSE PARENCHYMAL OPACITIES THROUGHOUT BOTH LUNGS MAY BE DUE TO ASYMMETRIC PULMONARY EDEMA AND/OR PNEUMONIA. Chest/Abdomen CTA 10/19/17 14:06 IMPRESSION: 1. NORMAL CTA OF THE CHEST. NO PULMONARY EMBOLI. 2. DIFFUSE BILATERAL PULMONARY INFILTRATES WITH RIGHT PLEURAL EFFUSION. DIFFERENTIAL INCLUDES MULTIFOCAL PNEUMONIA AND/OR PULMONARY EDEMA. Assessment & Plan - Diagnosis (1) Acute respiratory failure requiring reintubation Is this a current diagnosis for this admission?: Yes Plan: PAO2/FIO2=63 (ARDS) attempted to decrease PEEP 15-12 poorly tolerated possible pna as well as CHF (post cardiomyopathy???) needs echo gissell!!!! (ob/gyn doctor infection??) (2) Leucocytosis Qualifiers: Leukocytosis type: bandemia Qualified Code(s): D72.825 - Bandemia Is this a current diagnosis for this admission?: Yes Plan: pna/vaginitis (will ask for culture of vag dc) - Time Total Critical Time (Minutes): 55
[2017-10-19 18:52] LABS: ARTERIAL BLOOD H2CO3 1.03 mmol/L (1.05-1.35); ARTERIAL BLOOD HCO3 21.9 mmol/L (20-26); ARTERIAL BLOOD O2 SATURATION 96.8 % (94-98); ARTERIAL BLOOD PCO2 34.2 mmHg (35-45); ARTERIAL BLOOD PH 7.42 (7.35-7.45); ARTERIAL BLOOD PO2 85.9 mmHg (80-100); ARTERIAL BLOOD TOTAL CO2 22.9 mmol/L (21-25)
[2017-10-19 18:56] LABS: ARTERIAL BLOOD FIO2 100%
[2017-10-19] MEDS ORDERED: METHYLPREDNISOLONE INJ 125 MG/2 ML SDV IV ONE (19:00)
[2017-10-19 20:02] LABS: APPEARANCE,URINE CLEAR; BILIRUBIN,URINE NEGATIVE (NEGATIVE); COLOR,URINE STRAW; GLUCOSE, URINE NEGATIVE (NEGATIVE); KETONES,URINE NEGATIVE (NEGATIVE); LEUKOCYTE ESTERASE,URINE NEGATIVE (NEGATIVE); NITRITE,URINE NEGATIVE (NEGATIVE); PROTEIN,URINE NEGATIVE (NEGATIVE); URINE SPECIFIC GRAVITY 1.011; UROBILINOGEN,URINE NEGATIVE mg/dL (<2.0)
[2017-10-19 20:22] VITALS: BP 107/62
[2017-10-19 21:07] LABS: FLUID SOURCE LUNG
[2017-10-19 21:08] LABS: FLUID APPEARANCE HAZY; FLUID COLOR RED; FLUID VISCOSITY SLIGHTLY VISCOUS
[2017-10-19] MEDS ORDERED: FAMOTIDINE INJ/PF 20 MG/2 ML SDV IV SCH (22:00)
[2017-10-20] MEDS ORDERED: CLINDAMYCIN 600 MG/D5W RTU 600 MG/50 ML RTUPB IV SCH (02:00)
[2017-10-20] MEDS ORDERED: ENOXAPARIN SODIUM INJ 40 MG/0.4 ML DISP.SYRIN SUBCUT SCH (10:00)
[2017-10-20 11:03] LABS: PATH REVIEW PATHOLOGIST REVIEWED
== END 2017-10-19 19:45 | disposition short-term general hospital (02) | DRG 776 ==
LOC: ER 13:16 → EH 16:05 → ICU 16:37
PROVIDERS: ADMIT Internal Medicine; ATTEND Internal Medicine
PROC: 0BH17EZ Insertion of Endotracheal Airway into Trachea, Via Natural or Artificial Opening (ICD-10-PCS; principal; 2017-10-19)
PROC: 5A1935Z Respiratory Ventilation, Less than 24 Consecutive Hours (ICD-10-PCS; 2017-10-19)
DX: O16.5 Unspecified maternal hypertension, complicating the puerperium (principal); J96.01 Acute respiratory failure with hypoxia; I16.1 Hypertensive emergency; I50.30 Unspecified diastolic (congestive) heart failure; I11.0 Hypertensive heart disease with heart failure; O14.90 Unspecified pre-eclampsia, unspecified trimester; O86.12 Endometritis following delivery; O99.53 Diseases of the respiratory system complicating the puerperium; O90.81 Anemia of the puerperium; D50.9 Iron deficiency anemia, unspecified
CPT/HCPCS: 31500; 36415; 36600; 71010; 71275; 80053; 81001; 82550; 82553; 82803; 83735; 83880; 84484; 85025; 87040; 87070; 87086; 87205; 89050; 93005; 93010; 94002; 94660; 96365; 96375; 99291; 99292; J0295; J0330; J0360; J0696; J1580; J1940; J2060; J2405; J2704; J2930; J3490

== ENCOUNTER 2018-09-28 14:19 | Emergency (ER) | payer SELFPAY ==
--- NOTE | 2018-09-28 16:08 | ER Document Report ---
ED General - General Chief Complaint: Nonproductive Cough Stated Complaint: CHEST PAIN, DIZZY, WEAK Time Seen by Provider: 09/28/18 15:56 Notes: Patient is a 23-year-old female that comes to the emergency department for chief complaint of cough, congestion, mild sore throat, and pain in her chest for the past 4 days. She states that she has felt tired at work as well. No fever reported. She denies smoking. Patient states she had an episode last year where she had preeclampsia after delivery, severe hypertension, heart failure, intubation, and was on a ventilator briefly in [place]. She is on blood pressure medication now. She states she just wants to be checked to make sure she is okay. She states she has followed recently with both primary care and cardiology and had laboratory workup and echocardiogram which she was told was normal. TRAVEL OUTSIDE OF THE [place] IN LAST 30 DAYS: No - Related Data Allergies/Adverse Reactions: No Known Allergies Allergy (Verified 09/28/18 14:21) Past Medical History - General Information source: Patient - Social History Smoking Status: Former Smoker Frequency of alcohol use: None Drug Abuse: None Lives with: Family Family History: Hypertension - Past Medical History Cardiac Medical History: Reports: Hx Hypertension Pulmonary Medical History: Reports: Hx Asthma Renal/ Medical History: Denies: Hx Peritoneal Dialysis Past Surgical History: Reports: Hx Section - x1, Hx Tonsillectomy - Immunizations Hx Diphtheria, Pertussis, Tetanus Vaccination: Yes Review of Systems - Review of Systems Constitutional: See HPI EENT: See HPI Cardiovascular: See HPI Respiratory: See HPI Gastrointestinal: No symptoms reported Genitourinary: No symptoms reported Female Genitourinary: No symptoms reported Musculoskeletal: No symptoms reported Skin: No symptoms reported Hematologic/Lymphatic: No symptoms reported Neurological/Psychological: No symptoms reported Physical Exam - Vital signs Vitals: Temp Pulse Resp BP Pulse Ox 99.0 F 98 20 154/89 H 100 09/28/18 14:23 09/28/18 14:23 09/28/18 14:23 09/28/18 14:23 09/28/18 14:23 - Notes Notes: GENERAL: Alert, interacts well. No acute distress. HEAD: Normocephalic, atraumatic. EYES: Pupils equal, round, and reactive to light. Extraocular movements intact. ENT: Oral mucosa moist, tongue midline. Oropharynx unremarkable. Airway patent. Mild nasal congestion, no nasal septal hematoma, TM's intact. NECK: Full range of motion. Supple. Trachea midline. Mild bilateral LUNGS: Clear to auscultation bilaterally, no wheezes, rales, or rhonchi. No respiratory distress. HEART: Regular rate and rhythm. No murmur ABDOMEN: Soft, non-tender. Non-distended. Bowel sounds present in all 4 quadrants. GENITOURINARY: Deferred EXTREMITIES: Moves all 4 extremities spontaneously. No edema, normal radial and dorsalis pedis pulses bilaterally. No cyanosis. BACK: no cervical, thoracic, lumbar midline tenderness. No saddle anesthesia, normal distal neurovascular exam. NEUROLOGICAL: Alert and oriented x3. Normal speech. [cranial nerves II through XII grossly intact]. PSYCH: Normal affect, normal mood. SKIN: Warm, dry, normal turgor. No rashes or lesions noted. Course - Re-evaluation Re-evalutation: Patient is mildly hypertensive in the 150s, no tachycardia, no hypoxia, she is well-appearing, talkative, and alert. Clear lungs on auscultation. She does have congestion, mild lymphadenopathy of the anterior cervical change, unremarkable oral pharyngeal exam. Chest pain is both on the right and left side, worse with cough. I discussed with patient different options. Decision was made to perform EKG and chest x-ray but laboratory workup was declined. I do feel that this is an upper respiratory illness based on her presentation and exam. EKG sinus rhythm with no T wave inversions or ST segment changes in consecutive leads. Unremarkable GA, QTc. Normal axis. Chest x-ray unremarkable. On reevaluation patient remains well-appearing. Discussed results. Discussed treatment options, work release, follow-up, and return precautions with patient and grandmother. They state satisfaction and agreement. - Vital Signs Vital signs: Temp Pulse Resp BP Pulse Ox 97.5 F 89 16 147/79 H 100 09/28/18 17:38 09/28/18 17:38 09/28/18 17:38 09/28/18 17:38 09/28/18 17:38 Discharge - Discharge Clinical Impression: Cough Upper respiratory infection Qualifiers: URI type: unspecified URI Qualified Code(s): J06.9 - Acute upper respiratory infection, unspecified Chest pain Qualifiers: Chest pain type: unspecified Qualified Code(s): R07.9 - Chest pain, unspecified Condition: Stable Disposition: HOME, SELF-CARE Additional Instructions: Your EKG and chest x-ray at this time are normal. Your evaluation is consistent with a viral upper respiratory infection. This should resolve with time. Take the prescribed medications, take Tylenol for pain, drink plenty fluids and rest. Follow-up with primary care. Return if you worsen including difficulty breathing, spiking fever, passing out , or any other concerning or worsening symptoms. Prescriptions: Benzonatate [Tessalon [place] 100 mg Capsule] 100 mg PO Q8HP PRN #20 cap PRN Reason: Fluticasone Propionate [Flonase Nasal [place] 50 Mcg/[place] 16 gm] 1 spray NASL Q12 #1 inhaler Forms: Return to Work Referrals: RAJI JEROME NP [Primary Care Provider] - Follow up as needed
--- NOTE | 2018-09-28 16:58 | RADIOLOGY REPORT (SQ) ---
EXAM DESCRIPTION: CHEST 2 VIEWS COMPLETED DATE/TIME: 09/28/2018 4:44 pm REASON FOR STUDY: chest pain COMPARISON: 04/09/2013 EXAM PARAMETERS: NUMBER OF VIEWS: two views TECHNIQUE: Digital Frontal and Lateral radiographic views of the chest acquired. RADIATION DOSE: NA LIMITATIONS: none FINDINGS: LUNGS AND PLEURA: No opacities, masses or pneumothorax. No pleural effusion. MEDIASTINUM AND HILAR STRUCTURES: No masses or contour abnormalities. HEART AND VASCULAR STRUCTURES: Heart normal size. No evidence for failure. BONES: No acute findings. HARDWARE: None in the chest. OTHER: No other significant finding. IMPRESSION: 1. No significant interval changes since the prior examination dated 04/09/2013. No acu te findings. TECHNICAL DOCUMENTATION: JOB ID: [id number] [employer]- All Rights Reserved Reading location - IP/workstation name: [email or web address]
[2018-09-28] MEDS ORDERED: DEXAMETHASONE SOD PHOS INJ 10 MG/1 ML VIAL IM ONE (17:07)
[2018-09-28 17:38] VITALS: BP 147/79
--- NOTE | 2018-09-28 20:14 | EKG REPORT ---
SEVERITY:- NORMAL ECG - SINUS RHYTHM : Confirmed by: Adria Ashraf 28-Sep-2018 20:13:21
== END 2018-09-28 17:40 | disposition home or self-care (01) ==
LOC: ER 14:19
DX: J06.9 Acute upper respiratory infection, unspecified (principal); R05 Cough; J02.9 Acute pharyngitis, unspecified; R07.9 Chest pain, unspecified; R59.0 Localized enlarged lymph nodes; R53.83 Other fatigue; R09.81 Nasal congestion; I10 Essential (primary) hypertension; J45.909 Unspecified asthma, uncomplicated; Z79.899 Other long term (current) drug therapy; Z87.891 Personal history of nicotine dependence
CPT/HCPCS: 93005; 99284; 71046; 93010; J1100

== ENCOUNTER 2019-05-18 23:42 | Emergency (ER) | payer SELFPAY ==
[2019-05-18 23:48] VITALS: BP 152/99
--- NOTE | 2019-05-19 01:22 | ER Document Report ---
ED General - General Chief Complaint: Insect Bite Stated Complaint: POSS SPIDER BITE Time Seen by Provider: 05/19/19 00:42 Primary Care Provider: RAJI JEROME NP [Primary Care Provider] - Follow up in 1 week TRAVEL OUTSIDE OF THE [place] IN LAST 30 DAYS: No - HPI Notes: 24-year-old female to the emergency department with complaints of painful and itchy bug bites to her left dorsal hand and dorsal wrist as well as to the left upper back and right upper chest that she noticed today. States that they have gotten more erythematous and more painful to the touch over the course of the day. She has not taken anything for the pain or the itching. She also reports an episode of dizziness last night which accompanied nasal congestion, cough. States that she has been home taking care of her child who has an upper respiratory infection. She states that last night she was feeling pretty fatigued and had been beginning to cough and have nasal congestion when she decided to take a nap. She states that she got up from the nap to go see her daughter and she felt acutely dizzy but that had some pop sided in the evening. She has not taken anything for her upper respiratory symptoms. She denies any chest pain, syncope, nausea, vomiting, diarrhea, urinary complaints, recurrence of lightheadedness today or any other complaints - Related Data Allergies/Adverse Reactions: No Known Allergies Allergy (Verified 09/28/18 14:21) Past Medical History - General Information source: Patient - Social History Smoking Status: Never Smoker Frequency of alcohol use: None Drug Abuse: None Family History: Reviewed & Not Pertinent, Hypertension - Past Medical History Cardiac Medical History: Reports: Hx Hypertension Pulmonary Medical History: Reports: Hx Asthma Renal/ Medical History: Denies: Hx Peritoneal Dialysis Past Surgical History: Reports: Hx Section - x1, Hx Tonsillectomy - Immunizations Hx Diphtheria, Pertussis, Tetanus Vaccination: Yes Review of Systems - Review of Systems Constitutional: See HPI, Malaise. denies: Chills, Fever EENT: Nose congestion, Throat pain Cardiovascular: Dizziness, Lightheaded. denies: Chest pain, Palpitations, Dyspnea, Syncope Respiratory: Cough. denies: Short of breath Gastrointestinal: denies: Abdominal pain, Diarrhea, Nausea, Vomiting Genitourinary: No symptoms reported Female Genitourinary: No symptoms reported Musculoskeletal: No symptoms reported Skin: See HPI, Change in color, Rash Neurological/Psychological: No symptoms reported -: Yes All other systems reviewed and negative Physical Exam - Vital signs Vitals: Temp Pulse Resp BP Pulse Ox 98 F 82 14 152/99 H 97 05/18/19 23:43 05/18/19 23:43 05/18/19 23:43 05/18/19 23:43 05/18/19 23:43 Interpretation: Normal - General General appearance: Appears well, Alert - HEENT Head: Normocephalic Eyes: Normal Pupils: PERRL Ears: Normal External canal: Normal Tympanic membrane: Normal. No: Bulging, Hemotympanum Nasal: Clear rhinorrhea, Other - Patient with nasal congestion and clear rhinorrhea bilateral nares Mouth/Lips: Normal Mucous membranes: Normal Pharynx: Post nasal drainage. No: Erythema, Exudate, Peritonsillar abscess, Retropharyngeal abscess, Tonsillar hypertrophy, Uvular edema, Potential airway comprom. Neck: Normal - Respiratory Respiratory status: No respiratory distress Chest status: Nontender Breath sounds: Normal Chest palpation: Normal - Cardiovascular Rhythm: Regular Heart sounds: Normal auscultation Murmur: No - Abdominal Inspection: Normal Distension: No distension Bowel sounds: Normal Tenderness: Nontender Organomegaly: No organomegaly - Extremities General upper extremity: Normal ROM, Normal strength, Normal temperature - Neurological Neuro grossly intact: Yes Cognition: Normal Orientation: AAOx4 Agness Coma Scale Eye Opening: Spontaneous Agness Coma Scale Verbal: Oriented Agness Coma Scale Motor: Obeys Commands Agness Coma Scale Total: 15 Speech: Normal Motor strength normal: LUE, RUE, LLE, RLE Sensory: Normal - Psychological Associated symptoms: Normal affect, Normal mood - Skin Skin Temperature: Warm Skin Moisture: Dry Skin Color: Normal Skin irregularity: Rash - There are several erythematous and mildly edematous insect bites1 to the back of the right hand, to the back of the right wrist, to the upper right chest, and to the left upper back. There is no evidence of superimposed infection. Patient states that they are itchy. They are also mildly tender to palpation. There is no purulent drainage. There is no evidence of abscess. There is no streaking lymphangitis. Course - Re-evaluation Re-evalutation: 05/19/19 Impression: Multiple insect bites with likely local reaction. There is no evidence of superimposed infection and will not start on oral antibiotics. Also upper respiratory infection. Will send home with cough medicine, will send home with prednisone which will help with both the bug bites as well as the cough and upper respiratory syndrome. Will have patient take Benadryl. She is urged to return if she gets worse to include streaking lymphangitis, fever, worsening pain, worsening swelling. She agrees with the plan. - Vital Signs Vital signs: Temp Pulse Resp BP Pulse Ox 98 F 82 14 152/99 H 97 05/18/19 23:43 05/18/19 23:43 05/18/19 23:43 05/18/19 23:43 05/18/19 23:43 Discharge - Discharge Clinical Impression: URI (upper respiratory infection) Insect bite of left hand with local reaction Qualifiers: Encounter type: initial encounter Qualified Code(s): S60.562A - Insect bite (nonvenomous) of left hand, initial encounter Insect bite of left wrist with local reaction Qualifiers: Encounter type: initial encounter Qualified Code(s): S60.862A - Insect bite (nonvenomous) of left wrist, initial encounter Insect bite of shoulder with local reaction Qualifiers: Encounter type: initial encounter Disposition: HOME, SELF-CARE Additional Instructions: TAKE MEDICINES PRESCRIBED. REST AT HOME, PUSH FLUIDS. RETURN IF FEVERS, WORSENING REDNESS OR PAIN, CHEST PAIN, SOB, TONGUE SWELLING, FACIAL SWELLING. Prescriptions: Benzonatate [Tessalon Perles 100 mg Capsule] 100 mg PO Q8HP PRN #21 capsule PRN Reason: Bacitracin Zinc [Bacitracin Oint 15 gm] 1 applic TP BID #1 tube Diphenhydramine HCl [Benadryl] 25 mg PO Q6H 10 Days capsule Methylprednisolone [Medrol Dosepack (4 mg/Tab) 21 Tab/Dosepak] 4 mg PO ASDIR PRN #21 tab.ds.pk PRN Reason: Forms: Return to Work Referrals: RAJI JEROME NP [Primary Care Provider] - Follow up in 1 week
== END 2019-05-19 01:34 | disposition home or self-care (01) ==
LOC: ER 23:42
DX: S60.561A Insect bite (nonvenomous) of right hand, initial encounter (principal); S60.562A Insect bite (nonvenomous) of left hand, initial encounter; S60.862A Insect bite (nonvenomous) of left wrist, initial encounter; S40.269A Insect bite (nonvenomous) of unspecified shoulder, initial encounter; S60.861A Insect bite (nonvenomous) of right wrist, initial encounter; S20.462A Insect bite (nonvenomous) of left back wall of thorax, initial encounter; S20.361A Insect bite (nonvenomous) of right front wall of thorax, initial encounter; W57.XXXA Bitten or stung by nonvenomous insect and other nonvenomous arthropods, initial encounter; J06.9 Acute upper respiratory infection, unspecified; R42 Dizziness and giddiness; R09.81 Nasal congestion; J34.89 Other specified disorders of nose and nasal sinuses; R09.82 Postnasal drip; R05 Cough; R07.0 Pain in throat; R53.81 Other malaise; I10 Essential (primary) hypertension; J45.909 Unspecified asthma, uncomplicated
CPT/HCPCS: 99281

== ENCOUNTER 2019-06-07 20:46 | Emergency (ER) | payer SELFPAY ==
--- NOTE | 2019-06-07 22:24 | ER Document Report ---
ED Medical Screen (RME) - General Chief Complaint: Chest Pain Stated Complaint: CHEST PAIN Time Seen by Provider: 06/07/19 22:22 Primary Care Provider: RAJI JEROME NP [Primary Care Provider] - Follow up as needed Mode of Arrival: Ambulatory Information source: Patient Notes: 24-year-old female presented to ED for complaint of left chest pain going down her left arm. She states it started about 6 PM while she was cooking. She states she started coughing and the chest pain started at the same time. She states she was concerned because she does have a history of high blood pressure cholesterol and CHF during . She states the only surgical history is a . She states she does not smoke but she does occasionally drink. Patient is alert oriented respirations regular and unlabored speaking in full sentences walks with even steady gait. Lung sounds are clear to auscultations. I have greeted and performed a rapid initial assessment of this patient. A comprehensive ED assessment and evaluation of the patient, analysis of test results and completion of medical decision making process will be conducted by an additional ED providers. Dictation of this chart was performed using voice recognition software; therefore, there may be some unintended grammatical errors. TRAVEL OUTSIDE OF THE [place] IN LAST 30 DAYS: No - Related Data Allergies/Adverse Reactions: No Known Allergies Allergy (Verified 09/28/18 14:21) Past Medical History - Past Medical History Cardiac Medical History: Reports: Hx Hypertension Pulmonary Medical History: Reports: Hx Asthma Renal/ Medical History: Denies: Hx Peritoneal Dialysis Past Surgical History: Reports: Hx Section - x1, Hx Tonsillectomy - Immunizations Hx Diphtheria, Pertussis, Tetanus Vaccination: Yes History of Influenza Vaccine for 07/2017 - 12/2017 Season: Unknown Physical Exam - Vital signs Vitals: Temp Pulse Resp BP Pulse Ox 98.4 F 78 20 145/92 H 99 06/07/19 20:58 06/07/19 20:58 06/07/19 20:58 06/07/19 20:58 06/07/19 20:58 Course - Vital Signs Vital signs: Temp Pulse Resp BP Pulse Ox 98.4 F 78 20 145/92 H 99 06/07/19 20:58 06/07/19 20:58 06/07/19 20:58 06/07/19 20:58 06/07/19 20:58 Doctor's Discharge - Discharge Referrals: RAJI JEROME NP [Primary Care Provider] - Follow up as needed
[2019-06-07 23:03] LABS: APPEARANCE,URINE SLIGHTLY-CLOUDY; BILIRUBIN,URINE NEGATIVE (NEGATIVE); COLOR,URINE YELLOW; GLUCOSE, URINE NEGATIVE (NEGATIVE); KETONES,URINE NEGATIVE (NEGATIVE); LEUKOCYTE ESTERASE,URINE TRACE (NEGATIVE); NITRITE,URINE NEGATIVE (NEGATIVE); PROTEIN,URINE 30 mg/dL (NEGATIVE); URINE SPECIFIC GRAVITY 1.031; UROBILINOGEN,URINE NEGATIVE mg/dL (<2.0)
[2019-06-07 23:12] LABS: ABSOLUTE BASOPHILS # (AUTO) 0.1 10^3/uL (0.0-0.2); ABSOLUTE EOSINOPHILS # (AUTO) 0.3 10^3/uL (0.0-0.6); ABSOLUTE LYMPHOCYTES (AUTO) 2.6 10^3/uL (0.5-4.7); ABSOLUTE MONOCYTES (AUTO) 0.7 10^3/uL (0.1-1.4); ABSOLUTE NEUT (AUTO) 7.6 10^3/uL (1.7-8.2); BASOPHILS % (AUTO) 0.8 % (0-2); EOSINOPHILS % (AUTO) 2.8 % (0-6); HEMATOCRIT 33.5 % (36.0-47.0); HEMOGLOBIN 10.6 g/dL (12.0-15.5); LYMPHOCYTES % (AUTO) 22.8 % (13-45); MEAN CORPUSCULAR HEMOGLOBIN 22.9 pg (27.0-33.4); MEAN CORPUSCULAR HGB CONC 31.6 g/dL (32.0-36.0); MEAN CORPUSCULAR VOLUME 73 fl (80-97); MONOCYTES % (AUTO) 6.4 % (3-13); PLATELET COUNT 405 10^3/uL (150-450); RED BLOOD COUNT 4.61 10^6/uL (3.72-5.28); RED CELL DISTRIBUTION WIDTH 15.8 % (11.5-14.0); SEGMENTED NEUTROPHILS % (AUTO) 67.2 % (42-78); TOTAL CELLS COUNTED % (AUTO) 100 %; WHITE BLOOD COUNT 11.3 10^3/uL (4.0-10.5)
--- NOTE | 2019-06-07 23:23 | RADIOLOGY REPORT (SQ) ---
XR CHEST 2 VIEWS EXAM DATE: 06/07/2019 10:22 PM CDT HISTORY: Left chest pain going down left arm, cough, hx chf. COMPARISON: None. FINDINGS: The heart size is within normal limits. No consolidation, pleural effusion, or pneumothorax is seen. The bony thorax is intact. IMPRESSION: No evidence of acute cardiopulmonary disease.
[2019-06-07 23:30] LABS: ALBUMIN 4.2 g/dL (3.5-5.0); ALKALINE PHOSPHATASE 120 U/L (38-126); ANION GAP 8 (5-19); ASPARTATE AMINO TRANSFERASE 22 U/L (14-36); BILIRUBIN,DIRECT 0.2 mg/dL (0.0-0.4); BILIRUBIN,TOTAL 0.3 mg/dL (0.2-1.3); BLOOD UREA NITROGEN 11 mg/dL (7-20); CALCIUM 9.5 mg/dL (8.4-10.2); CARBON DIOXIDE 27 mmol/L (22-30); CHLORIDE 104 mmol/L (98-107); GLUCOSE 88 mg/dL (75-110); POTASSIUM 4.7 mmol/L (3.6-5.0); TOTAL PROTEIN 7.4 g/dL (6.3-8.2)
--- NOTE | 2019-06-08 03:12 | ER Document Report ---
ED General - General Chief Complaint: Chest Pain Stated Complaint: CHEST PAIN Time Seen by Provider: 06/07/19 22:22 Primary Care Provider: RAJI JEROME NP [Primary Care Provider] - Follow up as needed Mode of Arrival: Ambulatory TRAVEL OUTSIDE OF THE [place] IN LAST 30 DAYS: No - HPI Notes: Patient is a 24-year-old female who presents to the emergency department for evaluation of left-sided chest pain. Started earlier today. It started while coughing. She really has not had much of a cough otherwise. She states the pain shoots down her left arm. She felt somewhat short of breath and the pain first started, but denies that now. She has a history of CHF with , so she was concerned that might be what was happening today. She states her pain is significantly improved. It is also worsened by movement. Nothing seems to make it better. - Related Data Allergies/Adverse Reactions: No Known Allergies Allergy (Verified 09/28/18 14:21) Home Medications: Coreg Past Medical History - General Information source: Patient - Social History Smoking Status: Never Smoker Frequency of alcohol use: Occasional Drug Abuse: None Family History: Reviewed & Not Pertinent, Hypertension Patient has suicidal ideation: No Patient has homicidal ideation: No - Past Medical History Cardiac Medical History: Reports: Hx Congestive Heart Failure - During , Hx Hypertension Pulmonary Medical History: Reports: Hx Asthma Renal/ Medical History: Denies: Hx Peritoneal Dialysis Past Surgical History: Reports: Hx Section - x1, Hx Tonsillectomy - Immunizations Hx Diphtheria, Pertussis, Tetanus Vaccination: Yes Review of Systems - Review of Systems Constitutional: No symptoms reported EENT: No symptoms reported Cardiovascular: See HPI Respiratory: See HPI Gastrointestinal: No symptoms reported Genitourinary: No symptoms reported Musculoskeletal: No symptoms reported Skin: No symptoms reported Neurological/Psychological: No symptoms reported Physical Exam - Vital signs Vitals: Temp Pulse Resp BP Pulse Ox 98.4 F 78 20 145/92 H 99 06/07/19 20:58 06/07/19 20:58 06/07/19 20:58 06/07/19 20:58 06/07/19 20:58 - Notes Notes: Vital signs reviewed, please refer to chart. Head is normocephalic, atraumatic. Pupils equal round, reactive to light. Neck is supple without meningismus. Heart is regular rate and rhythm. Lungs are clear to auscultation bilaterally. Examination of the chest wall fails to yield any significant abnormalities. She is markedly tender to palpation around the midclavicular line on the left, from ribs 2 through 5. No cutaneous emphysema is appreciated. Abdomen is soft, nontender, normoactive bowel sounds throughout. Extremities without cyanosis, clubbing. Posterior calves are nontender. Peripheral pulses are equal. Skin is warm and dry. Patient is awake, alert, neurological exam is nonfocal. Course - Re-evaluation Re-evalutation: 06/08/19 03:10 Patient presents emergency department for evaluation. She was placed on a city planning aide and had laboratory investigations, EKG is ordered through triage. EKG was unremarkable. Laboratory investigations failed to reveal any significant abnormality. No signs of pulmonary edema or fluid overload on chest x-ray. Patient's pain is reproducible. I strongly suspect chest wall pain is the etiology. She is told to take NSAIDs, follow-up with primary care. She is to return to the emergency department with worsening or new concerning symptoms of any sort. - Vital Signs Vital signs: Temp Pulse Resp BP Pulse Ox 98.4 F 78 20 145/92 H 99 06/07/19 20:58 06/07/19 20:58 06/07/19 20:58 06/07/19 20:58 06/07/19 20:58 - Laboratory Result Diagrams: 06/07/19 22:55 06/07/19 22:55 Laboratory results interpreted by me: 06/07/19 06/07/19 22:30 22:55 WBC 11.3 H Hgb 10.6 L Hct 33.5 L MCV 73 L MCH 22.9 L MCHC 31.6 L RDW 15.8 H Urine Protein 30 H Ur Leukocyte Esterase TRACE H - Diagnostic Test Radiology reviewed: Reports reviewed Radiology results interpreted by me: 06/08/19 03:11 Chest X-Ray 06/07/19 22:22 IMPRESSION: No evidence of acute cardiopulmonary disease. - EKG Interpretation by Me Additional EKG results interpreted by me: 06/08/19 03:11 Sinus mechanism with rate of 81 bpm. Normal axis and intervals, no acute ST changes concerning for ischemia or infarction. Discharge - Discharge Clinical Impression: Chest wall pain Condition: Stable Disposition: HOME, SELF-CARE Instructions: Anti-Inflammatory Medication ([facility]), Chest Wall Pain ([facility]) Additional Instructions: Your pain is likely coming from your chest wall. Take [id number] ibuprofen as directed. Moist heat to the painful area. Follow-up with your doc tor this week. If you develop worsening or new concerning symptoms of any sort, return immediately to the emergency department for reevaluation. Referrals: RAJI JEROME NP [Primary Care Provider] - Follow up as needed
[2019-06-08 03:40] VITALS: BP 140/89
--- NOTE | 2019-06-08 14:52 | EKG REPORT ---
SEVERITY:- NORMAL ECG - SINUS RHYTHM : Confirmed by: Adria Ashraf 08-Jun-2019 14:52:07
== END 2019-06-08 03:40 | disposition home or self-care (01) ==
LOC: ER 20:46
DX: R07.89 Other chest pain (principal); M79.602 Pain in left arm; J45.909 Unspecified asthma, uncomplicated; I10 Essential (primary) hypertension; Z86.79 Personal history of other diseases of the circulatory system
CPT/HCPCS: 36415; 71046; 80053; 81001; 83880; 84703; 85025; 93005; 93010; 99285

== ENCOUNTER 2019-08-11 08:22 | Emergency (ER) | payer SELFPAY ==
--- NOTE | 2019-08-11 09:13 | EKG REPORT ---
SEVERITY:- NORMAL ECG - SINUS RHYTHM : Confirmed by: Adria Ashraf 11-Aug-2019 09:12:38
[2019-08-11] MEDS ORDERED: ASPIRIN 81 MG TABLET, CHEWABLE PO ONE (09:23)
--- NOTE | 2019-08-11 10:46 | ER Document Report ---
ED General - General Chief Complaint: Chest Pressure Stated Complaint: CHEST PAIN Time Seen by Provider: 08/11/19 10:29 Primary Care Provider: RAJI JEROME NP [Primary Care Provider] - Follow up as needed Mode of Arrival: Ambulatory Information source: Patient TRAVEL OUTSIDE OF THE [place] IN LAST 30 DAYS: No - HPI Patient complains to provider of: Chest pain Onset: Yesterday - pt. had positive HPT yesterday and doesn't want to be . She thinks the brief episode of CP she had yesterday was due to her . She is currently pain free - Related Data Allergies/Adverse Reactions: No Known Allergies Allergy (Verified 08/11/19 09:35) Past Medical History - General Information source: Patient - Social History Smoking Status: Never Smoker Chew tobacco use (# tins/day): No Frequency of alcohol use: Occasional Drug Abuse: Marijuana Family History: Reviewed & Not Pertinent, Hypertension Patient has suicidal ideation: No Patient has homicidal ideation: No - Past Medical History Cardiac Medical History: Reports: Hx Congestive Heart Failure - During , Hx Hypertension Pulmonary Medical History: Reports: Hx Asthma Renal/ Medical History: Denies: Hx Peritoneal Dialysis Past Surgical History: Reports: Hx Section - x1, Hx Tonsillectomy - Immunizations Hx Diphtheria, Pertussis, Tetanus Vaccination: Yes Review of Systems - Review of Systems Constitutional: No symptoms reported EENT: No symptoms reported Cardiovascular: See HPI, Chest pain Respiratory: No symptoms reported Gastrointestinal: No symptoms reported Musculoskeletal: No symptoms reported Neurological/Psychological: No symptoms reported -: Yes All other systems reviewed and negative Physical Exam - Vital signs Vitals: Temp Pulse Resp BP Pulse Ox 98.2 F 78 18 158/77 H 100 08/11/19 08:47 08/11/19 08:47 08/11/19 08:47 08/11/19 08:47 08/11/19 08:47 - General General appearance: Appears well In distress: None - HEENT Pharynx: Normal Neck: Normal - Respiratory Respiratory status: No respiratory distress Breath sounds: Normal - Cardiovascular Rhythm: Regular Heart sounds: Normal auscultation Murmur: No - Abdominal Bowel sounds: Normal Tenderness: Nontender - Extremities General upper extremity: Normal inspection General lower extremity: Normal inspection - Neurological Neuro grossly intact: Yes Cognition: Normal Orientation: AAOx4 Speech: Normal Course - Re-evaluation Re-evalutation: 08/11/19 13:33 Pt's test if positive here. I have spoken to Sarah with social media specialist and she will speak to the pt. concerning options for terminating the . 08/11/19 14:32 Pt is pain free at time of d/c -- she has spoken to Sarah and has expressed desire to go home - Vital Signs Vital signs: Temp Pulse Resp BP Pulse Ox 98.2 F 78 15 147/78 H 100 08/11/19 08:47 08/11/19 08:47 08/11/19 12:00 08/11/19 11:01 08/11/19 12:00 - Laboratory Result Diagrams: 08/11/19 12:32 08/11/19 12:32 Laboratory results interpreted by me: 08/11/19 08/11/19 08/11/19 12:32 12:32 12:32 WBC 11.6 H Hgb 9.8 L Hct 31.5 L MCV 72 L MCH 22.4 L MCHC 31.2 L RDW 17.5 H Carbon Dioxide 21 L Creatine Kinase 185 H Beta HCG, Quant 2572.70 H Urine HCG, Qual 08/11/19 12:46 WBC Hgb Hct MCV MCH MCHC RDW Carbon Dioxide Creatine Kinase Beta HCG, Quant Urine HCG, Qual POSITIVE H - EKG Interpretation by Me EKG shows normal: Sinus rhythm Rate: Normal Rhythm: NSR - nsr without acute change Discharge - Discharge Clinical Impression: Chest pain Qualifiers: Chest pain type: other chest pain Qualified Code(s): R07.89 - Other chest pain; R07.8 - Other chest pain Qualifiers: Weeks of gestation: less than 8 weeks Qualified Code(s): Z3A.01 - Less than 8 weeks gestation of Condition: Stable Disposition: HOME, SELF-CARE Additional Instructions: rest, continue current meds, return if worse Referrals: RAJI JEROME NP [Primary Care Provider] - Follow up as needed
[2019-08-11 12:48] LABS: ABSOLUTE BASOPHILS # (AUTO) 0.1 10^3/uL (0.0-0.2); ABSOLUTE EOSINOPHILS # (AUTO) 0.1 10^3/uL (0.0-0.6); ABSOLUTE LYMPHOCYTES (AUTO) 3.3 10^3/uL (0.5-4.7); ABSOLUTE MONOCYTES (AUTO) 0.8 10^3/uL (0.1-1.4); ABSOLUTE NEUT (AUTO) 7.3 10^3/uL (1.7-8.2); BASOPHILS % (AUTO) 0.7 % (0-2); EOSINOPHILS % (AUTO) 1.1 % (0-6); HEMATOCRIT 31.5 % (36.0-47.0); HEMOGLOBIN 9.8 g/dL (12.0-15.5); LYMPHOCYTES % (AUTO) 28.3 % (13-45); MEAN CORPUSCULAR HEMOGLOBIN 22.4 pg (27.0-33.4); MEAN CORPUSCULAR HGB CONC 31.2 g/dL (32.0-36.0); MEAN CORPUSCULAR VOLUME 72 fl (80-97); MONOCYTES % (AUTO) 6.8 % (3-13); PLATELET COUNT 381 10^3/uL (150-450); RED BLOOD COUNT 4.39 10^6/uL (3.72-5.28); RED CELL DISTRIBUTION WIDTH 17.5 % (11.5-14.0); SEGMENTED NEUTROPHILS % (AUTO) 63.1 % (42-78); TOTAL CELLS COUNTED % (AUTO) 100 %; WHITE BLOOD COUNT 11.6 10^3/uL (4.0-10.5)
[2019-08-11 13:11] LABS: ALBUMIN 4.1 g/dL (3.5-5.0); ALKALINE PHOSPHATASE 92 U/L (38-126); ANION GAP 10 (5-19); ASPARTATE AMINO TRANSFERASE 21 U/L (14-36); BILIRUBIN,DIRECT 0.1 mg/dL (0.0-0.4); BILIRUBIN,TOTAL 0.5 mg/dL (0.2-1.3); BLOOD UREA NITROGEN 9 mg/dL (7-20); CALCIUM 9.3 mg/dL (8.4-10.2); CARBON DIOXIDE 21 mmol/L (22-30); CHLORIDE 106 mmol/L (98-107); CREATINE KINASE 185 U/L (30-135); GLUCOSE 79 mg/dL (75-110); POTASSIUM 4.3 mmol/L (3.6-5.0); TOTAL PROTEIN 7.6 g/dL (6.3-8.2)
[2019-08-11 13:20] LABS: CREATINE KINASE MB 0.55 ng/mL (<4.55)
[2019-08-11 13:22] LABS: TROPONIN I < 0.012 ng/mL
[2019-08-11 14:48] VITALS: BP 142/77
== END 2019-08-11 15:10 | disposition home or self-care (01) ==
LOC: ER 08:22
DX: O26.891 Other specified pregnancy related conditions, first trimester (principal); R07.89 Other chest pain; O99.511 Diseases of the respiratory system complicating pregnancy, first trimester; J45.909 Unspecified asthma, uncomplicated; O16.1 Unspecified maternal hypertension, first trimester; O99.321 Drug use complicating pregnancy, first trimester; F12.10 Cannabis abuse, uncomplicated; Z3A.01 Less than 8 weeks gestation of pregnancy
CPT/HCPCS: 36415; 80053; 81025; 82550; 82553; 84484; 84702; 85025; 93005; 93010; 99285

== ENCOUNTER 2019-08-25 08:36 | Emergency (ER) | payer MEDICAID ==
--- NOTE | 2019-08-25 10:17 | ER Document Report ---
ED General - General Chief Complaint: Vaginal Bleeding Stated Complaint: VAGINAL BLEEDING Time Seen by Provider: 08/25/19 09:51 Primary Care Provider: RAJI JEROME NP [Primary Care Provider] - Follow up as needed TRAVEL OUTSIDE OF THE [place] IN LAST 30 DAYS: No - HPI Notes: Patient presents with return of vaginal bleeding. She states she has had a positive test and had a formal ultrasound at 6 weeks and they said she had an intrauterine but no heart tones. She began to spot on Thursday this week which has turned into more of a menstrual cycle. She has intermittent pelvic cramping. - Related Data Allergies/Adverse Reactions: No Known Allergies Allergy (Verified 08/25/19 09:02) Past Medical History - Social History Smoking Status: Former Smoker Chew tobacco use (# tins/day): No Frequency of alcohol use: None Drug Abuse: Marijuana Family History: Reviewed & Not Pertinent, Hypertension Patient has suicidal ideation: No Patient has homicidal ideation: No - Past Medical History Cardiac Medical History: Reports: Hx Congestive Heart Failure - During , Hx Hypertension Pulmonary Medical History: Reports: Hx Asthma Renal/ Medical History: Denies: Hx Peritoneal Dialysis Past Surgical History: Reports: Hx Section - x1, Hx Tonsillectomy - Immunizations Hx Diphtheria, Pertussis, Tetanus Vaccination: Yes Review of Systems - Review of Systems Constitutional: No symptoms reported EENT: No symptoms reported Cardiovascular: No symptoms reported Respiratory: No symptoms reported Gastrointestinal: No symptoms reported Genitourinary: No symptoms reported Female Genitourinary: See HPI Musculoskeletal: No symptoms reported Skin: No symptoms reported Hematologic/Lymphatic: No symptoms reported Neurological/Psychological: No symptoms reported Physical Exam - Vital signs Vitals: Temp Pulse Resp BP Pulse Ox 98.3 F 82 18 145/86 H 100 08/25/19 08:55 08/25/19 08:55 08/25/19 08:55 08/25/19 08:55 08/25/19 08:55 - General General appearance: Appears well, Alert - Pleasant and smiling - HEENT Head: Normocephalic, Atraumatic - Respiratory Respiratory status: No respiratory distress Chest status: Nontender Breath sounds: Normal - Cardiovascular Rhythm: Regular Heart sounds: Normal auscultation Murmur: No - Abdominal Inspection: Normal Distension: No distension Bowel sounds: Normal - Mild pelvic tenderness - Neurological Neuro grossly intact: Yes Cognition: Normal Orientation: AAOx4 Course - Re-evaluation Re-evalutation: 08/25/19 12:49 Patient well-appearing continues to be in no acute distress with no excess bleeding at this time. Beta-hCG levels are only 275 with no evidence of intra- or intrauterine likely incomplete miscarriage. I did discuss that she needs to follow her beta hCG levels down and to follow-up in 2 days either here or at her OB GEN's office for re-draw a beta hCG levels. Strict return precautions were provided any worsening abdominal pain is unrelenting develop any fevers vomiting to return immediately to emergency department for reevaluation - Vital Signs Vital signs: Temp Pulse Resp BP Pulse Ox 98.3 F 82 18 145/86 H 100 08/25/19 08:55 08/25/19 08:55 08/25/19 08:55 08/25/19 08:55 08/25/19 08:55 - Laboratory Result Diagrams: 08/25/19 10:05 Laboratory results interpreted by me: 08/25/19 08/25/19 10:05 10:05 Hgb 10.5 L Hct 32.9 L MCV 72 L MCH 23.0 L RDW 17.3 H Beta HCG, Quant 275.75 H Discharge - Discharge Clinical Impression: Incomplete miscarriage Disposition: HOME, SELF-CARE Instructions: Miscarriage ([facility]) Additional Instructions: Please return in 48 hours for beta-hCG recheck or have it checked at your primary care physician's office or security software engineer. Per discussion, any worsening of symptoms filling of 1 pad an hour for over 6 hours or any i other concerns return sooner to department for reevaluation.
[2019-08-25 10:20] LABS: ABSOLUTE BASOPHILS # (AUTO) 0.1 10^3/uL (0.0-0.2); ABSOLUTE EOSINOPHILS # (AUTO) 0.5 10^3/uL (0.0-0.6); ABSOLUTE MONOCYTES (AUTO) 0.6 10^3/uL (0.1-1.4); ABSOLUTE NEUT (AUTO) 5.7 10^3/uL (1.7-8.2); BASOPHILS % (AUTO) 1.1 % (0-2); EOSINOPHILS % (AUTO) 4.8 % (0-6); HEMATOCRIT 32.9 % (36.0-47.0); HEMOGLOBIN 10.5 g/dL (12.0-15.5); LYMPHOCYTES % (AUTO) 29.9 % (13-45); MEAN CORPUSCULAR VOLUME 72 fl (80-97); MONOCYTES % (AUTO) 6.5 % (3-13); PLATELET COUNT 355 10^3/uL (150-450); RED BLOOD COUNT 4.59 10^6/uL (3.72-5.28); RED CELL DISTRIBUTION WIDTH 17.3 % (11.5-14.0); SEGMENTED NEUTROPHILS % (AUTO) 57.7 % (42-78); TOTAL CELLS COUNTED % (AUTO) 100 %; WHITE BLOOD COUNT 9.9 10^3/uL (4.0-10.5)
--- NOTE | 2019-08-25 12:31 | RADIOLOGY REPORT (SQ) ---
EXAM DESCRIPTION: U/S OB TRANSVAGINAL W/O DOP COMPLETED DATE/TIME: 08/25/2019 12:10 pm REASON FOR STUDY: vaginal bleeding COMPARISON: None. TECHNIQUE: Transvaginal static and realtime grayscale images acquired of the pelvis. Additional catrachita cted spectral and color Doppler images recorded. All images stored on PACs. CLINICAL AGE: 8 weeks 4 days [facility] LIMITATIONS: None. FINDINGS: UTERUS: No visualized intrauterine . RIGHT ADNEXA: Ovary not identified due to poor acoustical window. No adnexal free fluid. No adnexal masses. LEFT ADNEXA: Ovary not identified due to poor acoustical window. No adnexal free fluid. No adnexal masses. FREE FLUID: None. OTHER: No other significant finding. IMPRESSION: NO VISUALIZED INTRA- OR EXTRAUTERINE . bHCG LEVEL TOO LOW TO EXPECT VISUALIZATION OF . ECTOPIC CANNOT BE EXCLUDED. FOLLOW-UP ULTRASOUND AND SERIAL BHCG LEVELS STRONGLY RECOMMENDED TO ACCURATELY ASSESS STATU S. TECHNICAL DOCUMENTATION: JOB ID: [id number] [employer]- All Rights Reserved Reading location - IP/workstation name: [email or web address]
[2019-08-25 13:10] LABS: APPEARANCE,URINE CLEAR; BILIRUBIN,URINE NEGATIVE (NEGATIVE); COLOR,URINE YELLOW; GLUCOSE, URINE NEGATIVE (NEGATIVE); KETONES,URINE NEGATIVE (NEGATIVE); LEUKOCYTE ESTERASE,URINE NEGATIVE (NEGATIVE); NITRITE,URINE NEGATIVE (NEGATIVE); PROTEIN,URINE NEGATIVE (NEGATIVE); URINE SPECIFIC GRAVITY 1.023; UROBILINOGEN,URINE NEGATIVE mg/dL (<2.0)
[2019-08-25 13:43] VITALS: BP 148/87
== END 2019-08-25 13:39 | disposition home or self-care (01) ==
LOC: ER 08:36
DX: O03.4 Incomplete spontaneous abortion without complication (principal)
CPT/HCPCS: 36415; 76817; 81001; 84702; 85025; 86900; 86901

== ENCOUNTER 2020-10-23 16:53 | Emergency (ER) | payer SELFPAY ==
[2020-10-23 17:30] VITALS: BP 153/103
[2020-10-23] MEDS ORDERED: TETRACAINE HCL 0.5% OPH SOLN 4 ML ONE (18:28)
[2020-10-23] MEDS ORDERED: TETRACAINE HCL 0.5% OPH SOLN 4 ML OD ONE (18:33)
--- NOTE | 2020-10-23 18:35 | ER Document Report ---
HPI - HPI Time Seen by Provider: 10/23/20 18:25 Pain Level: 5 Notes: 25-year-old female presents to the emergency room today for complaints of right eye redness that started 2 days ago. Denies any foreign body in her eye or sensation of foreign body in her eye. Has not had an eye exam in years. Reports her eye does feel itchy. Denies any fevers or chills. Denies any drainage from the eye. Does not wear contacts or glasses. Denies fevers, chills, chest pain,palpitations, shortness of breath, dyspnea, nausea, vomiting, diarrhea, abdominal pain, hematuria,blurred vision, double vision, loss of vision, speech changes, LH, dizziness, syncope, headaches, wheezing, ST, URI, neck pain, weakness, bowel or bladder dysfunction, saddle anesthesia, numbness or tingling in bilateral upper or lower extremities equally, muscle paralysis, weakness in bilateral upper or lower extremities equally or rash. - REPRODUCTIVE Reproductive: DENIES: : Past Medical History - General Information source: Patient - Social History Smoking Status: Never Smoker Chew tobacco use (# tins/day): No Frequency of alcohol use: Occasional Drug Abuse: Marijuana Family History: Reviewed & Not Pertinent, Hypertension - Past Medical History Cardiac Medical History: Reports: Hx Congestive Heart Failure - During , Hx Hypertension Pulmonary Medical History: Reports: Hx Asthma Renal/ Medical History: Denies: Hx Peritoneal Dialysis Past Surgical History: Reports: Hx Section - x1, Hx Tonsillectomy - Immunizations Hx Diphtheria, Pertussis, Tetanus Vaccination: Yes Vertical Provider Document - CONSTITUTIONAL Agree With Documented VS: Yes Exam Limitations: No Limitations General Appearance: WD/WN Notes: MEDICATIONS: I agree with the patient medications as charted by the RN. ALLERGIES: I agree with the allergies as charted by the RN. PAST MEDICAL HISTORY/PAST SURGICAL HISTORY: Reviewed and agree as charted by RN. SOCIAL HISTORY: Reviewed and agree as charted by RN. FAMILY HISTORY: No significant familial comorbid conditions directly related to patient complaint EXAM: Reviewed vital signs as charted by RN. PHYSICAL EXAMINATION: reviewed vital signs by RN GENERAL: Well-appearing, well-nourished and in no acute distress. HEAD: Atraumatic, normocephalic. EYES: Pupils equal round and reactive to light, extraocular movements intact. Fluostain wnl. PERRLA, normal accommodation, EMOI, peripheral vision bilaterally and equally. no exudates noted. red reflex wnl. fluostain negative for corneal abrasion, foreign body, dendrites, or ulcer. Normal fundi and optic discs. Corneas grossly clear. No nystagmus bilaterally. No ptosis, photophobia. ENT: Nares patent, oropharynx clear without exudates. Moist mucous membranes. NECK: Normal range of motion, supple without lymphadenopathy LUNGS: Breath sounds clear to auscultation bilaterally and equal. No wheezes rales or rhonchi. HEART: Regular rate and rhythm without murmurs ABDOMEN: Soft, nontender, nondistended abdomen. No guarding, no rebound. No masses appreciated. Female : deferred Musculoskeletal: Normal range of motion, no pitting or edema. No cyanosis. NEUROLOGICAL: Cranial nerves grossly intact. Normal speech, normal gait. Normal sensory, motor exams PSYCH: Normal mood, normal affect. SKIN: Warm, Dry, normal turgor, no rashes or lesions noted. - INFECTION CONTROL TRAVEL OUTSIDE OF THE [place] IN LAST 30 DAYS: No Course - Re-evaluation Re-evalutation: 10/23/20 18:39 Afebrile vital stable no distress. Nurses notes reviewed. Fluoroscopy stain negative for corneal abrasion or foreign body. Discussed with patient that she does have acute bacterial conjunctivitis, advised to use drops as directed, warm compress to site 20 minutes on 20 minutes off several times a day. 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 Patient given a work note as she cannot work for the next 24 hours that she is contagious. Advised to wash hands continuously as conjunctivitis is very contagious. Patient verbalized understanding this plan of care and agreed with plan of care. After performing a Medical Screening Examination, I estimate there is LOW risk for a RETAINED CORNEAL or LID FOREIGN BODY, DEEP SPACE INFECTION (e.g., ORBITAL CELLULITIS OR ABSCESS), ACUTE GLAUCOMA, PENETRATING GLOBE INJURY, RETINAL DETACHMENT, or MENINGITIS thus I consider the discharge disposition reasonable. I have reevaluated this patient multiple times and no significant life threatening changes are noted. Also, there is no evidence or peritonitis, sepsis, or toxicity. The patient and I have discussed the diagnosis and risks, and we agree with discharging home with outpatient follow-up with the understanding that symptoms and presentations can change. We also discussed returning to the Emergency Department immediately if new or worsening symptoms occur. We have discussed the symptoms which are most concerning (e.g., changing or worsening pain, vision changes, neck stiffness or fever) that necessitate immediate return. - Vital Signs Vital signs: Temp Pulse Resp BP Pulse Ox 98.2 F 77 16 153/103 H 100 10/23/20 17:28 10/23/20 17:28 10/23/20 17:28 10/23/20 17:28 10/23/20 17:28 - Laboratory Results Critical Laboratory Results Reviewed: No Critical Results - Radiology Results Critical Radiology Results Reviewed: No Critical Results Discharge - Discharge Clinical Impression: Conjunctivitis, right eye Condition: Stable Disposition: HOME, SELF-CARE Instructions: Conjunctivitis ([facility]), Antibiotic Therapy ([facility]), Eyedrop Use ([facility]) Prescriptions: Polymyxin B Sulfate/Tmp [Polytrim Oph Soln 10 ml] 1 drop OP ASDIR PRN #1 bottle PRN Reason: Forms: Return to Work Referrals: RAJI JEROME NP [Primary Care Provider] - Follow up as needed RADHA RUVALCABA DO [ACTIVE STAFF] - Follow up as needed
== END 2020-10-23 18:42 | disposition home or self-care (01) ==
LOC: ER 16:53
DX: H10.31 Unspecified acute conjunctivitis, right eye (principal); B96.89 Other specified bacterial agents as the cause of diseases classified elsewhere; I10 Essential (primary) hypertension; F12.10 Cannabis abuse, uncomplicated; J45.909 Unspecified asthma, uncomplicated; Z79.899 Other long term (current) drug therapy; Z79.82 Long term (current) use of aspirin
CPT/HCPCS: 99283; J3490